=== PATIENT | male | born 1945 | race Caucasian/White ===

== ENCOUNTER 2021-05-09 07:05 | Outpatient (REF) | payer MEDICARE, SELFPAY ==
[2021-05-09 07:21] LABS: MANUAL DIFF FLAG NO
[2021-05-09 07:40] LABS: Basophils Percent Auto 0.3 % (0-2); Eosinophils Absolute Auto 0.3 X10*3/uL (0.0-0.4); Eosinophils Percent Auto 4.5 % (0-4); Hematocrit 40.6 % (42-52); Hemoglobin 13.5 g/dl (14.0-18.0); Imm Gran Abs Auto 0.02 X10*3/uL (0.00-0.03); Imm Gran Pct Auto 0.3 % (0.0-0.4); Lymphocytes Absolute Auto 1.3 X10*3/uL (1.2-4.9); Lymphocytes Percent Auto 20.7 % (20-40); Mean Corpuscular HGB Conc 33.3 g/dl (31.0-36.0); Mean Corpuscular Hemoglobin 30.8 pg (27.0-33.0); Mean Corpuscular Volume 92.5 fL (80-98); Mean Platelet Volume 9.3 fL (9.4-12.4); Monocytes Absolute Auto 0.5 X10*3/uL (0.1-1.2); Monocytes Percent Auto 7.8 % (2-11); Neutrophils Absolute Auto 4.2 X10*3/uL (2.0-8.3); Neutrophils Percent Auto 66.4 % (45-73); Platelet Count 296 X10*3/uL (160-400); Red Blood Count 4.39 X10*6/uL (4.60-5.80); Red Cell Distribution Width 12.5 % (11.0-16.0); White Blood Count 6.3 X10*3/uL (4.8-10.8)
[2021-05-09 08:03] LABS: Alanine Aminotransferase 14 U/L (0-40); Albumin Level 4.3 g/dL (3.5-5.0); Alkaline Phosphatase 109 U/L (39-117); Anion Gap 10 (12-20); Aspartate Amino Transferase 22 U/L (5-37); Bilirubin Total 0.6 mg/dL (0.0-1.0); Blood Urea Nitrogen 21 mg/dL (9-16); C Reactive Protein 0.57 mg/dL (< or = 0.50); Calcium 9.6 mg/dL (8.4-10.2); Carbon Dioxide 30 mmol/L (22-29); Chloride 107 mmol/L (96-108); Cholesterol 184 mg/dL; Estimated Glomerular Filt Rate > 60; Glucose Fasting 93 mg/dL (60-99); HDL Cholesterol 63 mg/dL; LDL Cholesterol Calculated 112 mg/dl; Sodium 142 mmol/L (135-145); Triglycerides 49 mg/dL
[2021-05-09 08:23] LABS: Erythrocyte Sedimentation Rate 21 MM/HR (0-15)
[2021-05-09 08:36] LABS: TSH reflex Free T4 1.93 uIU/mL (0.32-4.0); Vitamin D 25-OH Total 51.6 ng/mL (>30)
[2021-05-09 08:52] LABS: Appearance Urine CLEAR; Color Urine YELLOW; Glucose Urine UA NEG (NEG); Leukocyte Esterase Urine NEG (NEG); Nitrite Urine NEG (NEG); Specific Gravity - Urine 1.015 (1.005-1.025); Urine Blood NEG (NEG); Urine Ketones NEG (NEG); Urine Protein NEG (NEG-TRACE)
== END 2021-05-09 07:06 | disposition home or self-care (01) ==
LOC: HO.LAB 07:05
PROVIDERS: PCP Internal Medicine; Visit Provider Internal Medicine
DX: Z00.00 Encounter for general adult medical examination without abnormal findings (principal); E55.9 Vitamin D deficiency, unspecified; M12.9 Arthropathy, unspecified
CPT/HCPCS: 36415; 80053; 80061; 81003; 82306; 84153; 84443; 85025; 85652; 86140

== ENCOUNTER → 2021-08-29 10:54 | Outpatient (BNVA) | payer MEDICARE, SELFPAY | PROVIDERS: PCP Internal Medicine; Referring Provider Internal Medicine; Visit Provider Nurse Practitioner Family | DX: Z12.11 Encounter for screening for malignant neoplasm of colon (principal); K40.90 Unilateral inguinal hernia, without obstruction or gangrene, not specified as recurrent | CPT/HCPCS: 99202 ==

== ENCOUNTER → 2021-12-15 09:32 | Outpatient (BNVA) | payer MEDICARE, SELFPAY | PROVIDERS: PCP Internal Medicine; Referring Provider Internal Medicine; Visit Provider Surgery | DX: K40.90 Unilateral inguinal hernia, without obstruction or gangrene, not specified as recurrent (principal) | CPT/HCPCS: 99202 ==

== ENCOUNTER 2022-01-04 11:36 | Day surgery (SDC) | payer MEDICARE, SELFPAY ==
--- NOTE | 2022-01-03 13:19 | HO.ANESPROP2 ---
Documented by User: Jyotsna Redmond NP 01/03/22 13:20 HPI - Anesthesia Eval Consult details Narrative: 76yo M for Colonoscopy PMFSH Active Problems Active Problems: All Active Problems (Updated 11/07/21 @ 09:19 by Zechariah Alfaro MD) Right inguinal hernia (Acute) Skin lesions (Acute) Elevated prostate specific antigen [PSA] (Acute) Elevated blood pressure reading (Acute) Colon cancer screening (Acute) Arthritis, multiple joint involvement (Acute) Annual physical exam (Acute) Past Medical History Medical History Arthritis, multiple joint involvement Elevated blood pressure reading Elevated prostate specific antigen [PSA] Family History Family History Mother Cancer Father Heart attack Surgical History Surgical History History of appendectomy Hx of colonoscopy Social History Social History Housing: House Alcohol intake: current Alcohol intake frequency: holidays/special occasions only Patient Tobacco Use Status: Never used Tobacco Second Hand Smoke Exposure: Yes Use of substances other than those prescribed or required for medical reasons: No Are you DNR?: No Advance Directives: No Advance Directives Information Provided: Yes service: No Current occupational status: employed and unemployed Cognitive needs: No Hearing needs: No Vision needs: Yes Meds Allergies Allergy/AdvReac Type Severity Reaction Status Date / Time vaccine adjuvant system, AdvReac Intermediate joint Verified 12/15/21 09:50 AS01B lipo pains; [From Shingrix (PF)] muscle weakness varicella-zoster virus AdvReac Intermediate joint Verified 12/15/21 09:50 glycoprotein pains; [From Shingrix (PF)] muscle weakness Home Medications Medication Instructions Recorded Confirmed Last Taken Type Boswellia 250 mg PO DAILY 05/06/21 12/15/21 Unknown History Gingko Biloba 120 mg PO DAILY 05/06/21 12/15/21 Unknown History Senior Eye Vision See Rx Instructions .Route .COMPLEX 05/06/21 12/15/21 Unknown History antiarthritic combination no.2 900 See Rx Instructions PO BID 05/06/21 12/15/21 Unknown History mg tablet (glucosamine-chondroitin) ascorbic acid (vitamin C) 500 mg 500 mg PO DAILY 05/06/21 12/15/21 Unknown History tablet calcium carbonate 333 mg-magnesium 1 tab PO DAILY 05/06/21 12/15/21 Unknown History oxide 133 mg-zinc sulf 5 mg tablet ferrous sulfate 325 mg (65 mg 325 mg PO .weekly 05/06/21 12/15/21 Unknown History iron) tablet (Feosol) ginseng 500 mg tablet mg PO 05/06/21 12/15/21 Unknown History omega-3 360 yv-fkk-gtp-fish oil 1 cap PO TID 05/06/21 12/15/21 Unknown History 1,200 mg capsule,delayed release (Fish Oil) saw palmetto 450 mg capsule 450 mg PO DAILY 05/06/21 12/15/21 Unknown History turmeric 400 mg capsule 800 mg PO DAILY 05/06/21 12/15/21 Unknown History Exam Exam Date and Time: January 03, 2022 1319 Assessment and Plan Assessment Anesthesia Assessment: Chart Reviewed Documented by User: Jesenia Loomis MD 01/04/22 12:37 [facility] Past Medical History Medical History Arthritis, multiple joint involvement Elevated blood pressure reading Elevated prostate specific antigen [PSA] Family History Family History Mother Cancer Father Heart attack Family history of problems with anesthesia: No Surgical History Surgical History History of appendectomy Hx of colonoscopy History of Problems with Anesthesia: No Social History Social History Housing: House Alcohol intake: current Alcohol intake frequency: holidays/special occasions only Patient Tobacco Use Status: Never used Tobacco Second Hand Smoke Exposure: Yes Use of substances other than those prescribed or required for medical reasons: No Are you DNR?: No Advance Directives: No Advance Directives Information Provided: Yes service: No Current occupational status: employed and unemployed Cognitive needs: No Hearing needs: No Vision needs: Yes Meds Allergies Allergy/AdvReac Type Severity Reaction Status Date / Time vaccine adjuvant system, AdvReac Intermediate joint Verified 12/15/21 09:50 AS01B lipo pains; [From Shingrix (PF)] muscle weakness varicella-zoster virus AdvReac Intermediate joint Verified 12/15/21 09:50 glycoprotein pains; [From Shingrix (PF)] muscle weakness Home Medications Medication Instructions Recorded Confirmed Last Taken Type Boswellia 250 mg PO DAILY 05/06/21 12/15/21 Unknown History Gingko Biloba 120 mg PO DAILY 05/06/21 12/15/21 Unknown History Senior Eye Vision See Rx Instructions .Route .COMPLEX 05/06/21 12/15/21 Unknown History antiarthritic combination no.2 900 See Rx Instructions PO BID 05/06/21 12/15/21 Unknown History mg tablet (glucosamine-chondroitin) ascorbic acid (vitamin C) 500 mg 500 mg PO DAILY 05/06/21 12/15/21 Unknown History tablet calcium carbonate 333 mg-magnesium 1 tab PO DAILY 05/06/21 12/15/21 Unknown History oxide 133 mg-zinc sulf 5 mg tablet ferrous sulfate 325 mg (65 mg 325 mg PO .weekly 05/06/21 12/15/21 Unknown History iron) tablet (Feosol) ginseng 500 mg tablet mg PO 05/06/21 12/15/21 Unknown History omega-3 360 bs-uku-ugd-fish oil 1 cap PO TID 05/06/21 12/15/21 Unknown History 1,200 mg capsule,delayed release (Fish Oil) saw palmetto 450 mg capsule 450 mg PO DAILY 05/06/21 12/15/21 Unknown History turmeric 400 mg capsule 800 mg PO DAILY 05/06/21 12/15/21 Unknown History Exam Airway Mallampati Class: II ([place] lateral) TM Dist: >3cm Neck ROM: Full Heart: rrr Lungs: cta Assessment and Plan Assessment Anesthesia Assessment: Anesthesia Plan Discussed and Chart Reviewed Final Anesthetic Review Family History of Problems with Anesthesia: No History of Problems with Anesthesia: No NPO: Yes ASA Class: III Final Preanesthetic Review: No Changes in Pt Med Stat, Meds/Allgs Chart Reviewed and Consent Obtained/Reviewed Patient Risk: Intermediate Procedure Risk: Intermediate Anesthetic Plan Anesthetic Plan: MAC: Disposition: Standard PACU
--- NOTE | 2022-01-04 11:57 | MHC.SHP ---
Pre-Procedural Eval Section A Date of Service: 01/04/22 Section B Chief Complaint: screening Relevant Family History (Specify if Yes): No Relevant Social History: None Present Medications: see Short Stay Collaborative assessment Medical History: Significant History (Arthritis, multiple joint involvement Elevated blood pressure reading Elevated prostate specific antigen [PSA]) History of Previous Operations: Relevant previous surgery/procedure and date(s) (appendectomy) Allergies: Allergies Allergy/AdvReac Type Severity Reaction Status Date / Time vaccine adjuvant system, AdvReac Intermediate joint Verified 12/15/21 09:50 AS01B lipo pains; [From Shingrix (PF)] muscle weakness varicella-zoster virus AdvReac Intermediate joint Verified 12/15/21 09:50 glycoprotein pains; [From Shingrix (PF)] muscle weakness Review of Systems Sugical H&P ROS: Negative: Constitution, Cardiovascular, Respiratory, Neurological, Psychiatric, Hem-Onc, Allergic/Immunologic, Gastrointestinal, Genitourinary, Musculoskeletal, Integumentary, Endocrine and Eyes/Ears/Nose/Throat Exam Surgical H&P Exam: Normal: HEENT, Normal: Heart, Normal: Lungs, Normal: Extremities, Normal: Skin and Normal: Neurological and Significant Findings: Abdomen (right sided inguinal hernia, reducible) Plan Diagnosis/Plan: Unchanged I have reviewed the history and physical and performed a pertinent physical examination on my patient. No changes have occurred unless specified.
[2022-01-04 12:17] VITALS: BMI 22.9
[2022-01-04 12:31] VITALS: BP 162/73; PULSE 55; RESP 18; TEMP 35.9; O2SAT 96
[2022-01-04] MEDS: Lactated Ringers 1,000 ML 100 ML IVCONT (12:43)
[2022-01-04 13:26] VITALS: BP 92/53; PULSE 50; RESP 16; TEMP 36.2; O2SAT 97
--- NOTE | 2022-01-04 13:26 | PM.OP ---
Brief Operative Note Date of Service: 01/04/22 Pre-op diagnosis: colon screening Post-op diagnosis: same Procedure: see op note Surgeon: Sabrina Li MD Anesthesia: MAC Was an Heat Treat Operator used for this Procedure?: No Estimated blood loss (mL): 0 Condition: stable Disposition: PACU
--- NOTE | 2022-01-04 13:27 | W.PM.OPN ---
Operative Note Operative Note Date of Service: 01/04/22 Narrative: Operative Information Procedure Description: Colonoscopy Indication: screening Anesthesia: MAC COLONOSCOPY Instrument: Olympus variable stiffness Adult scope 190L Colonoscopy Monitoring: Vital signs and clinical assessment, continuous EKG monitoring, Pulse oximetry, Carbon Dioxide monitoring and blood pressure monitoring were done throughout the procedure. Colon withdrawal time was 11 minutes. Procedure: The patient was placed in the left lateral decubitis position and pre-procedure medications were administered. After a digital rectal examination of the ano-rectum, the video colonoscope was inserted into the rectum and advanced through the colon to the cecum/TI. The colonoscope was slowly withdrawn in a retrograde panoramic fashion and the colon mucosa was carefully examined including a retroflexed view of the rectum. Findings and interventions are described below. Procedure Difficulty: moderate due to looping in hernia Findings: Terminal Ileum-normal Cecum:normal Ascending Colon: 10 mm sessile polyp removed with cold snare Transverse Colon -normal Descending Colon: diminutive polyp 3-4 mm removed with cold forceps Sigmoid Colon: moderate diverticulosis noted Rectum: Retroflexion with small internal hemorrhoids, grade I Anorectum - normal Colon preparation: [place] Bowel Preparation Scale Right colon; 2 Transverse colon: 3 Left colon; 3 (0 = Unprepared colon segment with mucosa not seen due to solid stool that cannot be cleared. 1 = Portion of mucosa of the colon segment seen, but other areas of the colon segment not well seen due to staining, residual stool and/or opaque liquid. 2 = Minor amount of residual staining, small fragments of stool and/or opaque liquid, but mucosa of colon segment seen well. 3 = Entire mucosa of colon segment seen well with no residual staining, small fragments of stool or opaque liquid) Impression and Post Procedure Diagnosis: polyps internal hemorrhoids diverticular disease Plan: High fiber diet leaflet Avoid straining at stool, epsom salts and sitz bath, anusol supps or cream Repeat Colonoscopy in 5 years due to polyps if health allows or earlier if clinically indicated Above findings were reviewed with the patient and relevant handouts were provided if indicated.
[2022-01-04 13:41] VITALS: BP 123/65; PULSE 49; RESP 16; O2SAT 97
[2022-01-04 13:56] VITALS: BP 103/82; PULSE 56; RESP 16; TEMP 36.2; O2SAT 97
[2022-01-04 14:11] VITALS: BP 115/80; PULSE 58; RESP 16; TEMP 36.2; O2SAT 97
== END 2022-01-04 15:21 | disposition home or self-care (01) ==
PROVIDERS: PCP Internal Medicine; Visit Provider Internal Medicine Gastroenterology
PROC: 0DJD8ZZ Inspection of Lower Intestinal Tract, Via Natural or Artificial Opening Endoscopic (ICD-10-PCS; CPT 45378; principal; 2022-01-04 14:10)
DX: Z12.11 Encounter for screening for malignant neoplasm of colon (principal); D12.2 Benign neoplasm of ascending colon; K63.5 Polyp of colon; K57.30 Diverticulosis of large intestine without perforation or abscess without bleeding; K64.0 First degree hemorrhoids; K40.90 Unilateral inguinal hernia, without obstruction or gangrene, not specified as recurrent; M15.9 Polyosteoarthritis, unspecified; R03.0 Elevated blood-pressure reading, without diagnosis of hypertension
CPT/HCPCS: 45385; 45380; 88305; J0690

== ENCOUNTER → 2022-01-18 09:49 | Outpatient (BNVA) | payer MEDICARE, SELFPAY | PROVIDERS: PCP Internal Medicine; Visit Provider Nurse Practitioner Family | DX: K63.5 Polyp of colon (principal); K57.90 Diverticulosis of intestine, part unspecified, without perforation or abscess without bleeding; Z98.890 Other specified postprocedural states | CPT/HCPCS: 99212 ==

== ENCOUNTER 2022-01-27 09:55 | Day surgery (SDC) | payer MEDICARE, SELFPAY ==
[2022-01-23 09:08] VITALS: BMI 22.2
--- NOTE | 2022-01-26 09:19 | P.CONAN_ITS ---
Documented by User: Jyotsna Redmond NP 01/26/22 09:26 HPI - Anesthesia Eval Consult details Narrative: 76yo M for Right Hernia Repair Inguinal with mesh s/p colo 01/04/22 with MAC PMFSH Active Problems Active Problems: All Active Problems (Updated 01/18/22 @ 10:10 by Esperanza Marinelli, [facility]) Annual physical exam (Acute) Arthritis, multiple joint involvement (Acute) Colon cancer screening (Acute) Elevated blood pressure reading (Acute) Elevated prostate specific antigen [PSA] (Acute) Skin lesions (Acute) Right inguinal hernia (Acute) Past Medical History Medical History Arthritis, multiple joint involvement Elevated blood pressure reading Elevated prostate specific antigen [PSA] Sessile colonic polyp Family History Family History Mother Cancer Father Heart attack Family history of problems with anesthesia: No Surgical History Surgical History History of appendectomy Hx of colonoscopy History of Problems with Anesthesia: No Social History Social History Housing: House Are you a primary customer care specialist to a significant other at home: No Do you presently have visiting nurse or other home services: No Alcohol intake: current Alcohol intake frequency: a few times a month Patient Tobacco Use Status: Never used Tobacco Second Hand Smoke Exposure: Yes Use of substances other than those prescribed or required for medical reasons: No Have you been hit, kicked, punched, or otherwise hurt by someone within the past year? If so, by whom?: No Are you DNR?: No Advance Directives: No Advance Directives Information Provided: Yes Advance Directives on File: No Recently lost weight without trying: No Eating poorly because of decreased appetite: No Nutrition Risks: No Nutritional Risk service: No Current occupational status: employed and unemployed Cognitive needs: No Hearing needs: No Vision needs: Yes Meds Allergies Allergy/AdvReac Type Severity Reaction Status Date / Time vaccine adjuvant system, AdvReac Intermediate joint Verified 01/27/22 11:13 AS01B lipo pains; [From Shingrix (PF)] muscle weakness varicella-zoster virus AdvReac Intermediate joint Verified 01/23/22 09:02 glycoprotein pains; [From Shingrix (PF)] muscle weakness Home Medications Medication Instructions Recorded Confirmed Last Taken Type Boswellia 250 mg PO DAILY 05/06/21 12/15/21 Unknown History Gingko Biloba 120 mg PO DAILY 05/06/21 12/15/21 Unknown History Senior Eye Vision See Rx Instructions .Route .COMPLEX 05/06/21 01/23/22 Unknown History antiarthritic combination no.2 900 See Rx Instructions PO BID 05/06/21 01/23/22 Unknown History mg tablet (glucosamine-chondroitin) ascorbic acid (vitamin C) 500 mg 500 mg PO DAILY 05/06/21 01/23/22 Unknown History tablet calcium carbonate 333 mg-magnesium 1 tab PO DAILY 05/06/21 01/23/22 Unknown History oxide 133 mg-zinc sulf 5 mg tablet ferrous sulfate 325 mg (65 mg 325 mg PO .weekly 05/06/21 01/23/22 Unknown History iron) tablet (Feosol) ginseng 500 mg tablet 500 mg PO DAILY 05/06/21 01/23/22 Unknown History omega-3 360 mp-fuq-khp-fish oil 1 cap PO TID 05/06/21 01/23/22 Unknown History 1,200 mg capsule,delayed release (Fish Oil) saw palmetto 450 mg capsule 450 mg PO DAILY 05/06/21 01/23/22 Unknown History turmeric 400 mg capsule 800 mg PO DAILY 05/06/21 01/23/22 Unknown History Exam Exam Date and Time: January 26, 2022 0919 Height,Weight and Vital Signs: Height 5 ft 10 in Weight 70.307 kg Assessment and Plan Assessment Anesthesia Assessment: Chart Reviewed Final Anesthetic Review Family History of Problems with Anesthesia: No History of Problems with Anesthesia: No Documented by User: Curtis Cabrera MD 01/27/22 13:17 PMFSH Past Medical History Medical History Arthritis, multiple joint involvement Elevated blood pressure reading Elevated prostate specific antigen [PSA] Sessile colonic polyp Family History Family History Mother Cancer Father Heart attack Family history of problems with anesthesia: No Surgical History Surgical History History of appendectomy Hx of colonoscopy History of Problems with Anesthesia: No Social History Social History Housing: House Are you a primary customer care specialist to a significant other at home: No Do you presently have visiting nurse or other home services: No Alcohol intake: current Alcohol intake frequency: a few times a month Patient Tobacco Use Status: Never used Tobacco Second Hand Smoke Exposure: Yes Use of substances other than those prescribed or required for medical reasons: No Have you been hit, kicked, punched, or otherwise hurt by someone within the past year? If so, by whom?: No Are you DNR?: No Advance Directives: No Advance Directives Information Provided: Yes Advance Directives on File: No Recently lost weight without trying: No Eating poorly because of decreased appetite: No Nutrition Risks: No Nutritional Risk service: No Current occupational status: employed and unemployed Cognitive needs: No Hearing needs: No Vision needs: Yes Meds Allergies Allergy/AdvReac Type Severity Reaction Status Date / Time vaccine adjuvant system, AdvReac Intermediate joint Verified 01/27/22 11:13 AS01B lipo pains; [From Shingrix (PF)] muscle weakness varicella-zoster virus AdvReac Intermediate joint Verified 01/23/22 09:02 glycoprotein pains; [From Shingrix (PF)] muscle weakness Home Medications Medication Instructions Recorded Confirmed Last Taken Type Boswellia 250 mg PO DAILY 05/06/21 12/15/21 Unknown History Gingko Biloba 120 mg PO DAILY 05/06/21 12/15/21 Unknown History Senior Eye Vision See Rx Instructions .Route .COMPLEX 05/06/21 01/23/22 Unknown History antiarthritic combination no.2 900 See Rx Instructions PO BID 05/06/21 01/23/22 Unknown History mg tablet (glucosamine-chondroitin) ascorbic acid (vitamin C) 500 mg 500 mg PO DAILY 05/06/21 01/23/22 Unknown History tablet calcium carbonate 333 mg-magnesium 1 tab PO DAILY 05/06/21 01/23/22 Unknown History oxide 133 mg-zinc sulf 5 mg tablet ferrous sulfate 325 mg (65 mg 325 mg PO .weekly 05/06/21 01/23/22 Unknown History iron) tablet (Feosol) ginseng 500 mg tablet 500 mg PO DAILY 05/06/21 01/23/22 Unknown History omega-3 360 yb-oxv-lkx-fish oil 1 cap PO TID 05/06/21 01/23/22 Unknown History 1,200 mg capsule,delayed release (Fish Oil) saw palmetto 450 mg capsule 450 mg PO DAILY 05/06/21 01/23/22 Unknown History turmeric 400 mg capsule 800 mg PO DAILY 05/06/21 01/23/22 Unknown History Exam Airway Mallampati Class: I TM Dist: >3cm Neck ROM: Full Loose/Missing/Broken Teeth: No Heart: ok Lungs: ok Assessment and Plan Final Anesthetic Review Family History of Problems with Anesthesia: No History of Problems with Anesthesia: No NPO: Yes ASA Class: III Final Preanesthetic Review: No Changes in Pt Med Stat, Meds/Allgs Chart Reviewed, Consent Obtained/Reviewed and Anes Risks/Benef Reviewed Patient Risk: Intermediate Procedure Risk: Low Anesthetic Plan Anesthetic Plan: GA and Agree w/ Assess. and Plan Disposition: Standard PACU
[2022-01-27] VITALS (8 sets, daily range): BP systolic 117–158; BP diastolic 57–83; PULSE 43–57; RESP 10–18; TEMP 36.2–36.6; O2SAT 95–100
[2022-01-27] MEDS: Lactated Ringers 1,000 ML 100 ML IVCONT (10:57)
--- NOTE | 2022-01-27 12:14 | PC.NURSE ---
DR. TORRES UPDATED THAT PT HAS REDDENED/CHAFED AREAS ON BILATERAL GROIN, DUE TO I WEAR A HERNIA JOCK STRAP EVERYDAY FOR YEARS. NO OPEN AREAS. DR. TORRES TO ASSESS.
--- NOTE | 2022-01-27 12:52 | MHC.SHP ---
Pre-Procedural Eval Section A Date of Service: 01/27/22 Section B Chief Complaint: Unilateral inguinal hernia, without obstruction Details of Present Illness: has a reducible inguinal hernia with Olivreos Relevant Family History (Specify if Yes): No Relevant Social History: None Present Medications: see Short Stay Collaborative assessment Medical History: Significant History ( arthritis, hypertension) Allergies: Allergies Allergy/AdvReac Type Severity Reaction Status Date / Time vaccine adjuvant system, AdvReac Intermediate joint Verified 01/27/22 11:13 AS01B lipo pains; [From Shingrix (PF)] muscle weakness varicella-zoster virus AdvReac Intermediate joint Verified 01/23/22 09:02 glycoprotein pains; [From Shingrix (PF)] muscle weakness Review of Systems Sugical H&P ROS: Negative: Constitution, Cardiovascular, Respiratory, Neurological, Psychiatric, Hem-Onc, Allergic/Immunologic, Gastrointestinal, Genitourinary, Musculoskeletal, Integumentary, Endocrine and Eyes/Ears/Nose/Throat Exam Surgical H&P Exam: Normal: HEENT, Normal: Heart, Normal: Lungs, Normal: Extremities, Normal: Skin and Normal: Neurological and Significant Findings: Abdomen ( right inguinal hernia) Plan Diagnosis/Plan: Unchanged I have reviewed the history and physical and performed a pertinent physical examination on my patient. No changes have occurred unless specified.
--- NOTE | 2022-01-27 15:01 | P.OP_ITS ---
Operative Note Operative Note Date of Service: 01/27/22 Narrative: Preop diagnosis: Right inguinal hernia Postop diagnosis: Right inguinal hernia with the large sac, indirect Procedure: Repair of right inguinal hernia with mesh The patient is a 76-year-old male with note of a reducible mass on the right groin consistent with a right inguinal hernia. View of marked increased in size, discomfort he wanted to proceed with repair. He understood the technique of repair with mesh. He was aware of the risks, benefits, and alternatives He was brought to the operating room and placed supine on the table under general anesthesia via laryngeal mask airway. the right groin was prepped and draped in the usual sterile fashion. A surgical time-out was done. The patient received cefazolin 2 g IV preoperatively I infiltrated the planned line of incision with lidocaine 1%. I made a short incision on the skin along an imaginary line from the anterior superior iliac spine to the pubic ramus using blade 15. This was carried down through the full- thickness of the skin subcutaneous fat with electrocautery. I bluntly dissected the external oblique aponeurosis to define this. By doing so were able to visualize the external ring. I incised the external oblique aponeurosis and co nnected this incision with the external ring to enter the inguinal canal. I applied graspers on the edges of the divided aponeurosis. I did blunt dissection of the underside of the aponeurosis to create a pocket for the mesh. The spermatic cord was noted and there appeared to be at an accompany large hernia. I bluntly dissected the cord and its contents with index finger. There was note of a large sac with significant adhesions surrounding the area likely from the chronicity of this hernia. We had a difficult time dissecting around this cord and the hernia. Eventually was able to pass a [place] drain around this and this was used for traction. I examined the cord. There was note of a very large sac. We had to carefully separate this from last of the cord contents. This had to be done very slowly and gently as the structures were not that easy to we identified because of the large sac along with the combining adhesions. Eventually was able to visualize the vas deferens. This was therefore protected during the rest of the dissection With the vas deferens identified proceeded to continue to separate the rest of the large sac from the cord contents. Again this part of this procedure took a long time view of the markedly adherent sac to the rest of the cord structures. Eventually as able to mobilize the sac all the way to the internal ring. This was reduced. I reinforced the ring with a medium-sized plug. The plug was secured with Prolene 2 sutures to the shelving edge of the inguinal and laterally and the internal oblique superiorly medially. I reinforced the floor of the canal with a keyhole mesh. The tails of the mesh were passed around the cord at the level of the internal ring. I used Prolene 2 sutures to secure the mesh to the internal oblique medially and superiorly, the inguinal and laterally and the pubic ramus inferomedially I copiously irrigated. Once hemostasis was ensured, I proceeded to reappose the subcutaneous layer with Dexon 3-0 interrupted sutures. Skin closure was achieved with Dexon 4-0 subcuticular running stitch. Steri-Strips and dressings were applied. The area was infiltrated with Marcaine 0.5% for postop analgesia. The procedure was completed The patient tolerated well. There were no complication noted. Initial and final counts of sponges instruments were correct. Estimated blood loss was about 50 cc The patient was extubated without difficulty and transferred to the recovery room with stable vital signs.
== END 2022-01-27 16:51 | disposition home or self-care (01) ==
PROVIDERS: PCP Internal Medicine; Visit Provider Surgery
PROC: (CPT 49505; principal; 2022-01-27 13:00)
DX: K40.90 Unilateral inguinal hernia, without obstruction or gangrene, not specified as recurrent (principal); K66.0 Peritoneal adhesions (postprocedural) (postinfection); R03.0 Elevated blood-pressure reading, without diagnosis of hypertension; R97.20 Elevated prostate specific antigen [PSA]; M15.9 Polyosteoarthritis, unspecified; Z79.899 Other long term (current) drug therapy
CPT/HCPCS: 49505; C1781; J0131; J0690; J3010

== ENCOUNTER → 2022-02-22 12:56 | Outpatient (BNVA) | payer MEDICARE, SELFPAY | PROVIDERS: PCP Internal Medicine; Visit Provider Urology | DX: R97.20 Elevated prostate specific antigen [PSA] (principal); N40.1 Benign prostatic hyperplasia with lower urinary tract symptoms; N13.8 Other obstructive and reflux uropathy | CPT/HCPCS: 99202 ==

== ENCOUNTER 2022-05-15 08:06 | Outpatient (REF) | payer MEDICARE, SELFPAY ==
[2022-05-15 08:27] LABS: MANUAL DIFF FLAG NO
[2022-05-15 08:54] LABS: Basophils Percent Auto 0.7 % (0-2); Eosinophils Absolute Auto 0.2 X10*3/uL (0.0-0.4); Eosinophils Percent Auto 3.6 % (0-4); Hematocrit 42.6 % (42.0-52.0); Hemoglobin 14.2 g/dl (14.0-18.0); Imm Gran Abs Auto 0.01 X10*3/uL (0.00-0.03); Imm Gran Pct Auto 0.2 % (0.0-0.4); Lymphocytes Absolute Auto 1.2 X10*3/uL (1.2-4.9); Mean Corpuscular HGB Conc 33.3 g/dl (31.0-36.0); Mean Corpuscular Hemoglobin 30.5 pg (27.0-33.0); Mean Corpuscular Volume 91.6 fL (80.0-98.0); Mean Platelet Volume 9.4 fL (9.4-12.4); Monocytes Absolute Auto 0.4 X10*3/uL (0.1-1.2); Monocytes Percent Auto 8.7 % (2-11); Neutrophils Absolute Auto 2.6 x10*3/uL (2.0-8.3); Neutrophils Percent Auto 58.8 % (45-73); Platelet Count 266 X10*3/uL (160-400); Red Blood Count 4.65 X10*6/uL (4.60-5.80); Red Cell Distribution Width 12.4 % (11.0-16.0); White Blood Count 4.4 X10*3/uL (4.8-10.8)
[2022-05-15 08:59] LABS: Appearance Urine Cloudy; Color Urine Yellow; Glucose Urine UA Negative (Negative); Leukocyte Esterase Urine Negative (Negative); Nitrite Urine Negative (Negative); Specific Gravity - Urine 1.015 (1.005-1.025); Urine Blood Negative (Negative); Urine Ketones Negative (Negative); Urine Protein Negative (Neg-Trace)
[2022-05-15 09:18] LABS: Alanine Aminotransferase 24 U/L (0-40); Albumin Level 4.5 g/dL (3.5-5.0); Alkaline Phosphatase 110 U/L (39-117); Anion Gap 15 (12-20); Aspartate Amino Transferase 31 U/L (5-37); Bilirubin Total 0.7 mg/dL (0.0-1.0); Blood Urea Nitrogen 19 mg/dL (9-16); Calcium 9.4 mg/dL (8.4-10.2); Carbon Dioxide 27 mmol/L (22-29); Chloride 104 mmol/L (96-108); Cholesterol 203 mg/dL; Estimated Glomerular Filt Rate > 60; Glucose Fasting 93 mg/dL (60-99); HDL Cholesterol 74 mg/dL; LDL Cholesterol Calculated 121 mg/dl; Potassium 4.9 mmol/L (3.3-5.1); Sodium 141 mmol/L (135-145); Total Protein 7.2 g/dL (6.5-8.0); Triglycerides 43 mg/dL
[2022-05-15 09:38] LABS: TSH reflex Free T4 1.61 uIU/mL (0.32-4.0); Vitamin D 25-OH Total 63.5 ng/mL (>30)
== END 2022-05-15 08:07 | disposition home or self-care (01) ==
LOC: HO.LAB 08:06
PROVIDERS: PCP Internal Medicine; Visit Provider Internal Medicine
DX: Z00.00 Encounter for general adult medical examination without abnormal findings (principal); E55.9 Vitamin D deficiency, unspecified; R30.0 Dysuria; R03.0 Elevated blood-pressure reading, without diagnosis of hypertension; M12.9 Arthropathy, unspecified; E78.00 Pure hypercholesterolemia, unspecified
CPT/HCPCS: 36415; 80053; 80061; 81003; 82306; 84443; 85025

== ENCOUNTER 2022-08-22 08:52 | Outpatient (REF) | payer MEDICARE, SELFPAY ==
[2022-08-22 10:51] LABS: PSA,Total (Free>4and<10) 6.75 ng/mL (0.00-4.00)
[2022-08-23 09:37] LABS: Free Prostate Spec Ag 1.2 ng/mL; Percent Free Prostate Spec Ag 19 % (calc) (>25); Prostate Specific Ag Total 6.3 ng/mL (< OR = 4.0)
== END 2022-08-22 08:53 | disposition home or self-care (01) ==
LOC: HO.LAB 08:52
PROVIDERS: PCP Internal Medicine; Visit Provider Urology
DX: Z12.5 Encounter for screening for malignant neoplasm of prostate (principal); N40.1 Benign prostatic hyperplasia with lower urinary tract symptoms; R97.20 Elevated prostate specific antigen [PSA]; N13.8 Other obstructive and reflux uropathy
CPT/HCPCS: 36415; 84153; 84154

== ENCOUNTER → 2022-08-29 08:52 | Outpatient (BNVA) | payer MEDICARE, SELFPAY | PROVIDERS: PCP Internal Medicine; Visit Provider Urology | DX: R97.20 Elevated prostate specific antigen [PSA] (principal) | CPT/HCPCS: 99212 ==

== ENCOUNTER 2023-02-08 07:02 | Outpatient (REF) | payer MEDICARE, SELFPAY ==
[2023-02-08 08:48] LABS: PSA,Total (Free>4and<10) 3.47 ng/mL (0.00-4.00)
== END 2023-02-08 07:03 | disposition home or self-care (01) ==
LOC: HO.LAB 07:02
PROVIDERS: PCP Internal Medicine; Visit Provider Urology
DX: Z12.5 Encounter for screening for malignant neoplasm of prostate (principal); R97.20 Elevated prostate specific antigen [PSA]
CPT/HCPCS: 36415; 84153

== ENCOUNTER 2023-02-23 09:06 | Outpatient (AMB) | payer MEDICARE, SELFPAY ==
--- NOTE | 2023-02-23 09:07 | MHC.OFFVIS ---
Intake Intake Visit Reasons: 6M PSA(set) Intake Note: Pt presents to the office today for a 6 month PSA Allergies vaccine adjuvant system, AS01B lipo [From Shingrix (PF)] Adverse Reaction (Intermediate, Verified 02/23/23 09:07) joint pains; muscle weakness varicella-zoster virus glycoprotein [From Shingrix (PF)] Adverse Reaction (Intermediate, Verified 02/23/23 09:07) joint pains; muscle weakness Medication List - Last Reconciled 02/23/23 by Orestes Jensen MD antiarthritic combination no.2 (glucosamine-chondroitin) 1 tablet PO 2 times a day; ascorbic acid (vitamin C) 500 mg PO DAILY [Boswellia 250 mg PO DAILY] calcium carb-mag ox-zinc sulf 333-133-5 mg 1 tab PO DAILY ferrous sulfate (Feosol) 325 mg PO .weekly finasteride 5 mg PO DAILY 90 days [[place] Biloba 120 mg PO DAILY] ginseng 500 mg PO DAILY ibuprofen 600 mg PO Q6H PRN omega 1-fcl-zco-fish oil 360-1,200 mg (Fish Oil) 1 cap PO TID saw palmetto 450 mg PO DAILY [Senior Eye Vision 1 tablet daily; ] sildenafil 50 mg PO DAILY PRN 30 days turmeric 800 mg PO DAILY HPI HPI Comments History of Present Illness Details Tesfaye is a pleasant male. He is seen for the following urologic conditions - elevated PSA - erectile dysfunction A great response to finasteride Continue Repeat PSA in 6 months Elevated PSA Marginal PSA for age PSA 05/19 4.9, 08/21 6.3 19%, 02/18 3.5 +F Minimal lower urinary tract symptoms KARELY 2+ on exam No nodules Reassurance provided 6 month follow-up repeat levels Erectile dysfunction Responsive to sildenafil PFSH Medical History Arthritis, multiple joint involvement Elevated blood pressure reading Elevated prostate specific antigen [PSA] Sessile colonic polyp Surgical History History of appendectomy History of right inguinal hernia repair (~01/27/22) Hx of colonoscopy Family History Mother Cancer Father Heart attack Social History Housing: House Are you a primary morning caregiver to a significant other at home: No Do you presently have visiting nurse or other home services: No Alcohol intake: current Alcohol intake frequency: a few times a month Patient Tobacco Use Status: Never used Tobacco e-Cigarette/Vaping Use: Never Used Second Hand Smoke Exposure: Yes service: No Current occupational status: employed and unemployed Cognitive needs: No Hearing needs: No Vision needs: Yes Review of Systems Const Denies chills and Denies fever(s) Card Reports no additional complaints and Denies syncope Resp Denies cough GI Denies abdominal pain and Denies heartburn Reports as per HPI and Denies change in libido Neuro Denies syncope Psych Denies change in libido Endo Denies change in libido Physical Exam Const General: cooperative, healthy appearing, comfortable and no acute distress Orientation/consciousness: patient oriented x3 HEENT Face and sinus: Yes normal facial exam Mouth: moist mucous membranes Neck Neck: Yes normal visual inspection, Yes full ROM and Yes trachea midline Chest Chest palpation & inspection: normal inspection of the chest Resp Effort & Inspection: normal respiratory effort, able to speak in complete sentences and no respiratory distress GI Inspection: Yes normal to inspection Back/Spine/Pelvis Cervical Spine: normal cervical lordosis Thoracic/Lumbar Spine: thoracic and lumbar spine normal to inspection Skin General skin exam: no rashes or lesions noted Neuro General: patient oriented x3, gait normal, tone normal and moves all extremities Extrem General: Yes normal to inspection and Yes capillary refill normal Assessment & Plan Assessment & Plan (1) Bladder outlet obstruction: Code(s): N32.0 - Bladder-neck obstruction (2) Erectile dysfunction: Code(s): N52.9 - Male erectile dysfunction, unspecified Qualifiers: Erectile dysfunction type: unspecified Qualified Code(s): N52.9 - Male erectile dysfunction, unspecified Plan Six month follow-up labs Patient Instructions: Imaging studies, laboratory and physical exam results were discussed and reviewed in detail. No major barriers to patient understanding were identified. An opportunity to ask questions regarding the treatment plan was provided. All questions were answered. The patient expressed understanding and agreement with the above treatment plan. The patient is aware they should contact our office by phone for worsening of their current condition or the appearance of new urologic symptoms. Compliance is encouraged with any medications and followup testing that is ordered. It is a privilege to participate in the urologic care of your patient. If you have any questions or concerns regarding treatment for the above conditions, or other urologic issues, please do not hesitate to contact me. The office telephone contact is [phone]. This note is constructed using voice recognition software. While every effort has been made to ensure accuracy debt collection specialist errors may have been included. Yours sincerely, Dr Orestes Jensen MD, [facility] - Urology Providers of Expert, Compassionate Care for the Genitourinary System Coding Level of Care Code Est Pt Level 3 (34172) Diagnoses Bladder outlet obstruction N32.0 Erectile dysfunction N52.9 Erectile dysfunction type: unspecified
== END 2023-02-23 09:31 | disposition home or self-care (01) ==
PROVIDERS: Visit Provider Urology
DX: N32.0 Bladder-neck obstruction (principal); N52.9 Male erectile dysfunction, unspecified
CPT/HCPCS: 99213

== ENCOUNTER → 2023-02-23 09:06 | Outpatient (BNVA) | payer MEDICARE, SELFPAY | PROVIDERS: Visit Provider Urology | DX: N32.0 Bladder-neck obstruction (principal); N52.9 Male erectile dysfunction, unspecified | CPT/HCPCS: 99212 ==

== ENCOUNTER 2023-05-22 08:42 | Outpatient (AMB) | payer MEDICARE, SELFPAY ==
[2023-05-22 08:43] VITALS: BP 140/86; PULSE 61; O2SAT 98; BMI 23.3
--- NOTE | 2023-05-22 08:43 | MHC.PC.OV ---
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 Required: No Accompanied by: Self / Same As Patient Allergies vaccine adjuvant system, AS01B lipo [From Shingrix (PF)] Adverse Reaction (Intermediate, Verified 05/22/23 09:18) joint pains; muscle weakness varicella-zoster virus glycoprotein [From Shingrix (PF)] Adverse Reaction (Intermediate, Verified 05/22/23 09:18) joint pains; muscle weakness Medication List - Last Reconciled 05/22/23 by Zechariah Alfaro MD antiarthritic combination no.2 (glucosamine-chondroitin) 1 tablet PO 2 times a day; ascorbic acid (vitamin C) 500 mg PO DAILY [Boswellia 250 mg PO DAILY] calcium carb-mag ox-zinc sulf 333-133-5 mg 1 tab PO DAILY ferrous sulfate (Feosol) 325 mg PO .weekly finasteride 5 mg PO DAILY 90 days [Gingko Biloba 120 mg PO DAILY] ginseng 500 mg PO DAILY ibuprofen 600 mg PO Q6H PRN omega 2-yjw-dfu-fish oil 360-1,200 mg (Fish Oil) 1 cap PO TID saw palmetto 450 mg PO DAILY [Senior Eye Vision 1 tablet daily; ] sildenafil 50 mg PO DAILY PRN 30 days turmeric 800 mg PO DAILY Tobacco use date assessed: 05/22/23 Fall risk assessment: No Falls in past year Last assessed Fall Risk: 05/22/23 Dental Screening Dental Screen Date: 05/22/23 Did you have a dental visit in the last 12 months?: Yes Did you have a dental problem in the last 6 months where you did not have access to dental care?: No Was dental information given to patient?: Patient has dentist [facility] TEN[facility] HPI Details Patient comes in today for his annual physical examination States that he feels okay and notes that his joint pains remain adequately controlled on his current regimen of OTC supplements and regular physical activity and exercise States that all of his residual symptoms from when he contracted COVID back in September 2022 have cleared up gradually over time and he now feels back to his normal/baseline self He denies any headaches or dizziness Denies any chest pains, no SOB No nausea/vomiting, no abdominal pain No change in bowel habits noted He denies any acute urinary symptoms He is up-to-date with his colon cancer screening - had his last one done last year (2021) with Dr. Li; was recommended to get a repeat colonoscopy in 5 years if his health will allow PFSH Medical History Sessile colonic polyp Elevated prostate specific antigen [PSA] Elevated blood pressure reading Arthritis, multiple joint involvement Surgical History History of right inguinal hernia repair (~01/27/22) Hx of colonoscopy History of appendectomy Family History Mother Cancer Father Heart attack Social History Housing: House Are you a primary district manager primary care sales to a significant other at home: No Do you presently have visiting nurse or other home services: No Alcohol intake: current Alcohol intake frequency: a few times a month Patient Tobacco Use Status: Never used Tobacco e-Cigarette/Vaping Use: Never Used Second Hand Smoke Exposure: Yes service: No Current occupational status: employed and unemployed Cognitive needs: No Hearing needs: No Vision needs: Yes Questionnaire PHQ-9 Over the last 2 weeks, how often have you been bothered by any of the following problems? 1. Little interest or pleasure in doing things: not at all 2. Feeling down, depressed, or hopeless: not at all 3. Trouble falling or staying asleep, or sleeping too much: not at all 4. Feeling tired or having little energy: not at all 5. Poor appetite or overeating: not at all 6. Feeling bad about yourself - or that you are a failure or have let yourself or your family down: not at all 7. Trouble concentrating on things, such as reading the newspaper or watching television: not at all 8. Moving or speaking so slowly that other people could have noticed. Or the opposite - being so fidgety or restless that you have been moving around a lot more than usual: not at all 9. Thoughts that you would be better off or of hurting yourself in some way: not at all Total score: 0 Depression Screening Interpretation: Negative Depression Screening Done: Yes 30391 - PHQ-9 Billing: Yes Source: Developed by Drs. Sanjay Tanner, Opal Mi, Joseph Rankin and colleagues, with an educational dea from [employer]. Thrive Questionnaire Date Thrive assessed: 05/22/23 I am a: Patient What is your living situation today?: I have a steady place to live Within the past 12 months, did the food you bought not last and you didn't have the money to get more?: Never true Within the past 12 months, did you worry whether your food would run out before you got money to buy more?: Never true Do you have trouble paying for medicines?: No Do you have trouble getting transportation to medical appointments?: No Do you have trouble paying your heating and electricity bill?: No Do you have trouble taking care of your child, family member or friend?: No Do you have trouble with day-to-day activities such as bathing, preparing meals, shopping, managing finances, etc.?: No Are you currently unemployed and looking for a job?: No Are you interested in more education?: No Please select the resources that you would like help with: None Currently or been in a relationship where the following occur: no concerns reported AUDIT C Alcohol Use Questionnaire (AUDIT-C) 1. How often do you have a drink containing alcohol?: Monthly or less 2. How many drinks containing alcohol do you have on a typical day when you are drinking?: 1 or 2 3. How often do you have six or more drinks on one occasion?: Never Total Score: 1 Score Reviewed/Action Taken: Yes MORTEZA-7 AMB Questionnaire MORTEZA-7 Date MORTEZA - 7 assessed: 05/22/23 Feeling nervous, anxious, or on edge: 0 = Not at all Not being able to stop or control worryin = Not at all Worrying too much about different things: 0 = Not at all Trouble relaxin = Not at all Being so restless that it is hard to sit still: 0 = Not at all Becoming easily annoyed or irritable: 0 = Not at all Feeling afraid as if something awful might happen: 0 = Not at all Total MORTEZA-7 score (0-4 normal; 5-9 mild; 10-14 moderate; 15-21 severe): 0 Source: Developed by Drs. Sanjay Tanner, Opal Mi, Joseph Rankin and colleagues, with an educational dea from [employer]. Review of Systems Const Denies chills, Denies fatigue, Denies fever(s), Denies headache(s), Denies malaise and Denies weakness Eyes Denies blurry vision, Denies change in vision, Denies irritation and Denies itchy eyes ENT Denies dysphagia, Denies dizziness, Denies otalgia, Denies headache(s), Denies nasal congestion, Denies neck pain, Denies odynophagia and Denies sore throat Card Denies chest pain, Denies rapid heart rate, Denies irregular heart rhythm, Denies palpitations and Denies dyspnea Resp Denies chest congestion, Denies cough, Denies dyspnea and Denies wheezing GI Denies abdominal pain, Denies bloating, Denies constipation, Denies dysphagia, Denies heartburn, Denies diarrhea, Denies nausea, Denies odynophagia and Denies vomiting Denies hematuria, Denies difficulty urinating, Denies dysuria, Denies urinary frequency and Denies urinary urgency Musc Denies back pain, Reports arthralgias (on and off but are mostly controlled/manageable), Denies joint swelling, Denies muscle weakness and Denies neck pain Skin/Breast Denies change in pigmentation, Denies lesions, Denies rash and Denies unusual bruising Neuro Denies dizziness, Denies headache(s), Denies paresthesias and Denies weakness Endo Denies fatigue and Denies palpitations Aller/Immun Denies itchy eyes and Denies wheezing Physical exam (Primary Care) Vital Signs: Last Vital Signs Pulse 61 05/22/23 08:43 BP 140/86 H 05/22/23 08:43 Pulse Ox 98 05/22/23 08:43 Oxygen Delivery Method Room Air 05/22/23 08:43 BMI result Body Mass Index 23.3 Tobacco/Smoking Status: Tobacco use Status Tobacco use date assessed 05/22/23 05/22/23 08:54 Patient Tobacco Use Status Never used Tobacco 05/22/23 08:54 e-Cigarette/Vaping Use Never Used 05/22/23 08:54 PHQ-9: PHQ-9 Score PHQ-9: Total score 0 05/22/23 08:54 Depression Screening Interpretation: Negative Thrive Assessment: Date of Thrive Assessment Date Thrive assessed 05/22/23 05/22/23 08:54 Currently or been in a relationship where the following occur: no concerns reported Const General: no acute distress, alert and awake Orientation/consciousness: patient oriented x3 HENMT Head: Yes normocephalic and Yes atraumatic Ears: external ears normal, TM's normal bilaterally and EAC's normal General nose exam: No nasal discharge present Face and sinus: Yes normal facial exam and Yes sinuses nontender Teeth and gingiva: dentition normal Throat: Yes posterior oropharynx normal and Yes tonsils normal (no TP congestion) Eyes Eyelids: Yes eyelids normal Conjunctivae: conjunctivae normal Pupils: Equal, round and reactive pupils present EOM: EOMs intact bilaterally Neck Neck: Yes no lymphadenopathy and Yes supple Thyroid: Thyroid normal Resp Auscultation: clear to auscultation bilaterally, no rales and no wheezes Cardio Rate: regular rate Rhythm: regular rhythm Heart sounds: no murmurs GI Palpation (GI): Soft to palpation, nontender and No hepatosplenomegaly present Auscultation: normal bowel sounds General: Yes no CVA tenderness Back/Spine/Pelvis Back: no CVA tenderness Thoracic/Lumbar Spine: thoracic and lumbar spine normal to inspection Skin Lesions: no lesions Rashes: no rashes Neuro General: patient oriented x3, moves all extremities, no focal motor deficits and CN's II-XI intact bilaterally Cranial nerves: Yes Equal, round and reactive pupils present Cognition (Neuro): normal cognition Gait exam (Neuro): Normal gait present Extrem General: Yes no clubbing, cyanosis or edema Assessment and Plan Assessment & Plan (1) Annual physical exam: Code(s): Z00.00 - Encounter for general adult medical examination without abnormal findings Plan: Check labs (2) Elevated blood pressure reading: Code(s): R03.0 - Elevated blood-pressure reading, without diagnosis of hypertension Plan: Reinforced low sodium diet Patient's BP is slightly elevated again during today's visit; patient states that his BP is usually consistent and slightly lower when he checks it at home He is advised to continue monitoring his blood pressure regularly - systolic BP should ideally be at least 130 to 140 mm or less (3) Elevated prostate specific antigen [PSA]: Code(s): R97.20 - Elevated prostate specific antigen [PSA] Plan: Has been recommended by urology to continue observation Continue Finasteride 5 mg QD Follow up with urology as scheduled (4) Arthritis, multiple joint involvement: Code(s): M12.9 - Arthropathy, unspecified Plan: May continue current OTC supplements (see med list), which he feels are helping with majority of his symptoms He is encouraged to continue staying active and exercising regularly to help manage his joint pains better (5) Erectile dysfunction: Code(s): N52.9 - Male erectile dysfunction, unspecified Qualifiers: Erectile dysfunction type: unspecified Qualified Code(s): N52.9 - Male erectile dysfunction, unspecified Plan: Continue Viagra 50 mg QD PRN Plan Follow up in 6 months Orders: Orders Complete Blood Count Auto Diff Today R03.0 - Elevated blood-pressure reading, without diagnosis of hypertension, Z00.00 - Encounter for general adult medical examination without abnormal findings Lipid Panel Today E78.00 - Pure hypercholesterolemia, unspecified, Z00.00 - Encounter for general adult medical examination without abnormal findings TSH reflex Free T4 Today E78.00 - Pure hypercholesterolemia, unspecified, Z00.00 - Encounter for general adult medical examination without abnormal findings Vitamin D 25-OH Total Today E55.9 - Vitamin D deficiency, unspecified, Z00.00 - Encounter for general adult medical examination without abnormal findings Erythrocyte Sedimentation Rate Today M12.9 - Arthropathy, unspecified, Z00.00 - Encounter for general adult medical examination without abnormal findings Comprehensive [place]. Panel Fast Today M12.9 - Arthropathy, unspecified, R03.0 - Elevated blood-pressure reading, without diagnosis of hypertension, Z00.00 - Encounter for general adult medical examination without abnormal findings UA CC w/rflx Micro + Cult Today R30.0 - Dysuria, Z00.00 - Encounter for general adult medical examination without abnormal findings Coding Level of Care Code Est Pt Prev Care >65y(08108) Diagnoses Annual physical exam Z00.00 Elevated blood pressure reading R03.0 Elevated prostate specific antigen [PSA] R97.20 Arthritis, multiple joint involvement M12.9 Erectile dysfunction, unspecified erectile dysfunction type N52.9 Erectile dysfunction type: unspecified
== END 2023-05-22 09:28 | disposition home or self-care (01) ==
PROVIDERS: Visit Provider Internal Medicine
DX: Z00.00 Encounter for general adult medical examination without abnormal findings (principal); R03.0 Elevated blood-pressure reading, without diagnosis of hypertension; R97.20 Elevated prostate specific antigen [PSA]; M12.9 Arthropathy, unspecified; N52.9 Male erectile dysfunction, unspecified
CPT/HCPCS: 99397

== ENCOUNTER 2023-05-23 07:12 | Outpatient (REF) | payer MEDICARE, SELFPAY ==
[2023-05-23 07:22] LABS: MANUAL DIFF FLAG NO
[2023-05-23 08:08] LABS: Basophils Percent Auto 0.6 % (0-2); Eosinophils Absolute Auto 0.2 X10*3/uL (0.0-0.4); Eosinophils Percent Auto 4.8 % (0-4); Hematocrit 43.2 % (42.0-52.0); Hemoglobin 14.2 g/dl (14.0-18.0); Imm Gran Abs Auto 0.01 X10*3/uL (0.00-0.03); Imm Gran Pct Auto 0.2 % (0.0-0.4); Lymphocytes Absolute Auto 1.3 X10*3/uL (1.2-4.9); Lymphocytes Percent Auto 26.2 % (20-40); Mean Corpuscular HGB Conc 32.9 g/dl (31.0-36.0); Mean Corpuscular Volume 94.3 fL (80.0-98.0); Mean Platelet Volume 9.6 fL (9.4-12.4); Monocytes Absolute Auto 0.4 X10*3/uL (0.1-1.2); Monocytes Percent Auto 8.8 % (2-11); Neutrophils Percent Auto 59.4 % (45-73); Platelet Count 274 X10*3/uL (160-400); Red Blood Count 4.58 X10*6/uL (4.60-5.80); Red Cell Distribution Width 12.5 % (11.0-16.0)
[2023-05-23 08:22] LABS: Appearance Urine Clear; Color Urine Yellow; Glucose Urine UA Negative (Negative); Leukocyte Esterase Urine Negative (Negative); Nitrite Urine Negative (Negative); Urine Blood Negative (Negative); Urine Ketones Negative (Negative); Urine Protein Negative (Neg-Trace)
[2023-05-23 08:43] LABS: Erythrocyte Sedimentation Rate 5 MM/HR (0-15)
[2023-05-23 08:49] LABS: Alanine Aminotransferase 21 U/L (0-40); Albumin Level 4.4 g/dL (3.5-5.0); Alkaline Phosphatase 99 U/L (39-117); Anion Gap 13 (12-20); Aspartate Amino Transferase 26 U/L (5-37); Bilirubin Total 0.5 mg/dL (0.0-1.0); Blood Urea Nitrogen 17 mg/dL (9-16); Carbon Dioxide 28 mmol/L (22-29); Chloride 107 mmol/L (96-108); Cholesterol 229 mg/dL (<200); Estimated Glomerular Filt Rate > 60; Glucose Fasting 93 mg/dL (60-99); HDL Cholesterol 87 mg/dL (>40); LDL Cholesterol Calculated 132 mg/dL (<100); Potassium 4.5 mmol/L (3.3-5.1); Sodium 143 mmol/L (135-145); Total Protein 7.3 g/dL (6.5-8.0); Triglycerides 51 mg/dL (<150)
[2023-05-23 09:05] LABS: TSH reflex Free T4 2.24 uIU/mL (0.32-4.0); Vitamin D 25-OH Total 59.6 ng/mL (>30)
== END 2023-05-23 07:13 | disposition home or self-care (01) ==
LOC: HO.LAB 07:12
PROVIDERS: PCP Internal Medicine; Visit Provider Internal Medicine
DX: Z00.00 Encounter for general adult medical examination without abnormal findings (principal); R03.0 Elevated blood-pressure reading, without diagnosis of hypertension; M12.9 Arthropathy, unspecified; E78.00 Pure hypercholesterolemia, unspecified; R30.0 Dysuria; E55.9 Vitamin D deficiency, unspecified
CPT/HCPCS: 36415; 80053; 80061; 81003; 82306; 84443; 85025; 85652

== ENCOUNTER 2023-08-07 14:05 | Outpatient (AMB) | payer MEDICARE, SELFPAY ==
--- NOTE | 2023-08-07 14:11 | A.OFFPC_ITS ---
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: No Accompanied by: Self / Same As Patient Allergies vaccine adjuvant system, AS01B lipo [From Shingrix (PF)] Adverse Reaction (Intermediate, Verified 08/07/23 15:08) joint pains; muscle weakness varicella-zoster virus glycoprotein [From Shingrix (PF)] Adverse Reaction (Intermediate, Verified 08/07/23 15:08) joint pains; muscle weakness Medication List - Last Reconciled 08/07/23 by Zechariah Alfaro MD antiarthritic combination no.2 (glucosamine-chondroitin) 1 tablet PO 2 times a day; ascorbic acid (vitamin C) 500 mg PO DAILY [Boswellia 250 mg PO DAILY] calcium carb-mag ox-zinc sulf 333-133-5 mg 1 tab PO DAILY ferrous sulfate (Feosol) 325 mg PO .weekly finasteride 5 mg PO DAILY 90 days [Gingko Biloba 120 mg PO DAILY] ginseng 500 mg PO DAILY ibuprofen 600 mg PO Q6H PRN omega 7-fge-qtg-fish oil 360-1,200 mg (Fish Oil) 1 cap PO TID saw palmetto 450 mg PO DAILY [[employer] 1 tablet daily; ] sildenafil 50 mg PO DAILY PRN 30 days turmeric 800 mg PO DAILY Tobacco use date assessed: 08/07/23 Fall risk assessment: No Falls in past year Last assessed Fall Risk: 08/07/23 Dental Screening Dental Screen Date: 08/07/23 Did you have a dental visit in the last 12 months?: Yes Did you have a dental problem in the last 6 months where you did not have access to dental care?: No Was dental information given to patient?: Patient has dentist HPI Cataract HPI Details Patient comes in today at the request of Dr. Leon Baig of the [facility] for a preoperative medical examination for clearance for surgery He is scheduled for cataract extraction/phacoemulsification with IOL of the right eye under MAC on 08/23/2023, followed by the same procedure on the left eye a week later on 08/30/[address] Baig Patient states that he feels well He denies any headaches or dizziness Denies any chest pains, no shortness of breath No nausea/vomiting, no abdominal pain No change in bowel habits noted [facility] Medical History Sessile colonic polyp Elevated prostate specific antigen [PSA] Elevated blood pressure reading Arthritis, multiple joint involvement Surgical History History of right inguinal hernia repair (~01/27/22) Hx of colonoscopy History of appendectomy Family History Mother Cancer Father Heart attack Social History Housing: House Are you a primary professional healthcare representative to a significant other at home: No Do you presently have visiting nurse or other home services: No Alcohol intake: current Alcohol intake frequency: a few times a month Patient Tobacco Use Status: Never used Tobacco e-Cigarette/Vaping Use: Never Used Second Hand Smoke Exposure: Yes service: No Current occupational status: employed and unemployed Cognitive needs: No Hearing needs: No Vision needs: Yes Questionnaire PHQ-9 Over the last 2 weeks, how often have you been bothered by any of the following problems? 1. Little interest or pleasure in doing things: not at all 2. Feeling down, depressed, or hopeless: not at all 3. Trouble falling or staying asleep, or sleeping too much: not at all 4. Feeling tired or having little energy: not at all 5. Poor appetite or overeating: not at all 6. Feeling bad about yourself - or that you are a failure or have let yourself or your family down: not at all 7. Trouble concentrating on things, such as reading the newspaper or watching television: not at all 8. Moving or speaking so slowly that other people could have noticed. Or the opposite - being so fidgety or restless that you have been moving around a lot more than usual: not at all 9. Thoughts that you would be better off or of hurting yourself in some way: not at all Total score: 0 Depression Screening Interpretation: Negative Depression Screening Done: Yes 87058 - PHQ-9 Billing: Yes Source: Developed by Drs. Sanjay Tanner, Opal Mi, Joseph Rankin and colleagues, with an educational dea from [employer]. Thrive Questionnaire Date Thrive assessed: 08/07/23 I am a: Patient What is your living situation today?: I have a steady place to live Within the past 12 months, did the food you bought not last and you didn't have the money to get more?: Never true Within the past 12 months, did you worry whether your food would run out before you got money to buy more?: Never true Do you have trouble paying for medicines?: No Do you have trouble getting transportation to medical appointments?: No Do you have trouble paying your heating and electricity bill?: No Do you have trouble taking care of your child, family member or friend?: No Do you have trouble with day-to-day activities such as bathing, preparing meals, shopping, managing finances, etc.?: No Are you currently unemployed and looking for a job?: No Are you interested in more education?: No Please select the resources that you would like help with: None Currently or been in a relationship where the following occur: no concerns reported AUDIT C Alcohol Use Questionnaire (AUDIT-C) 1. How often do you have a drink containing alcohol?: Monthly or less 2. How many drinks containing alcohol do you have on a typical day when you are drinking?: 1 or 2 3. How often do you have six or more drinks on one occasion?: Weekly Total Score: 4 Score Reviewed/Action Taken: Yes MORTEZA-7 AMB Questionnaire MORTEZA-7 Date MORTEZA - 7 assessed: 08/07/23 Feeling nervous, anxious, or on edge: 0 = Not at all Not being able to stop or control worryin = Not at all Worrying too much about different things: 0 = Not at all Trouble relaxin = Not at all Being so restless that it is hard to sit still: 0 = Not at all Becoming easily annoyed or irritable: 0 = Not at all Feeling afraid as if something awful might happen: 0 = Not at all Total MORTEZA-7 score (0-4 normal; 5-9 mild; 10-14 moderate; 15-21 severe): 0 Source: Developed by Drs. Sanjay Tanner, Opal Mi, Joseph Rankin and colleagues, with an educational dea from [employer]. Review of Systems Const Denies chills, Denies fatigue, Denies fever(s) and Denies headache(s) Eyes Reports blurry vision ENT Denies dysphagia, Denies dizziness, Denies otalgia, Denies headache(s), Denies neck pain, Denies odynophagia and Denies sore throat Card Denies chest pain, Denies rapid heart rate, Denies irregular heart rhythm, Denies palpitations and Denies dyspnea Resp Denies cough, Denies dyspnea and Denies wheezing GI Denies abdominal pain, Denies constipation, Denies dysphagia, Denies heartburn, Denies diarrhea, Denies nausea, Denies odynophagia and Denies vomiting Denies hematuria, Denies difficulty urinating, Denies dysuria and Denies urinary frequency Musc Denies back pain, Reports arthralgias (on and off but are mostly controlled/manageable) and Denies neck pain Skin/Breast Denies rash Neuro Denies dizziness, Denies headache(s) and Denies paresthesias Endo Denies fatigue and Denies palpitations Aller/Immun Denies wheezing Physical exam (Primary Care) Vital Signs: Last Vital Signs Pulse 63 08/07/23 14:12 BP 136/88 08/07/23 14:12 Pulse Ox 98 08/07/23 14:12 Oxygen Delivery Method Room Air 08/07/23 14:12 BMI result Body Mass Index 23.9 Tobacco/Smoking Status: Tobacco use Status Tobacco use date assessed 08/07/23 08/07/23 14:13 Patient Tobacco Use Status Never used Tobacco 08/07/23 14:13 e-Cigarette/Vaping Use Never Used 08/07/23 14:13 PHQ-9: PHQ-9 Score PHQ-9: Total score 0 08/07/23 15:05 Depression Screening Interpretation: Negative Thrive Assessment: Date of Thrive Assessment Date Thrive assessed 08/07/23 08/07/23 14:13 Currently or been in a relationship where the following occur: no concerns reported Const General: no acute distress and alert HENMT Ears: TM's normal bilaterally and EAC's normal Throat: Yes posterior oropharynx normal and Yes tonsils normal (no TP congestion) Neck Neck: Yes no lymphadenopathy and Yes supple Thyroid: Thyroid normal Resp Auscultation: clear to auscultation bilaterally, no rales and no wheezes Cardio Rate: regular rate Rhythm: regular rhythm Heart sounds: no murmurs GI Palpation (GI): Soft to palpation and nontender Auscultation: normal bowel sounds General: Yes no CVA tenderness Back/Spine/Pelvis Back: no CVA tenderness Skin Rashes: no rashes Extrem General: Yes no clubbing, cyanosis or edema Assessment and Plan Assessment & Plan (1) Preoperative examination: Code(s): Z01.818 - Encounter for other preprocedural examination Plan: Patient presents with acceptable risks and appears medically optimized to undergo planned low cardiac risk procedures He has no significant cardiac or pulmonary issues and no history of cardiac disease (2) Cataracts, bilateral: Code(s): H26.9 - Unspecified cataract Qualifiers: Age-related cataract type: unspecified Cataract type: age-related Qualified Code(s): H25.9 - Unspecified age-related cataract Plan: He is scheduled for cataract extraction/phacoemulsification with IOL of the right eye under MAC on 08/23/2023, followed by the same procedure on the left eye a week later on 08/30/[address] Baig of the [facility] (3) Elevated blood pressure reading: Code(s): R03.0 - Elevated blood-pressure reading, without diagnosis of hypertension Plan: Reinforced low sodium diet Patient states that his BP is usually consistent and slightly lower when he checks it at home He is advised to continue monitoring his blood pressure regularly - systolic BP should ideally be at least 130 to 140 mm or less (4) Elevated prostate specific antigen [PSA]: Code(s): R97.20 - Elevated prostate specific antigen [PSA] Plan: He has been recommended by urology to continue observation Continue Finasteride 5 mg QD Follow up with urology as scheduled (5) Arthritis, multiple joint involvement: Code(s): M12.9 - Arthropathy, unspecified Plan: May continue current OTC supplements (see med list), which he feels are helping with majority of his symptoms He is encouraged to continue staying active and exercising regularly to help manage his joint pains better He takes Ibuprofen 600 mg PRN and he has been advised stop taking all NSAIDs at least 7 days before his scheduled procedures Plan Patient is presently medically optimized and has no contraindications to undergo cataract surgery as planned on 08/23/2023 and 08/30/2023 respectively Follow up as scheduled in October 2023 Coding Level of Care Code Est Pt Level 3 (55307) Diagnoses Preoperative examination Z01.818 Age-related cataract of both eyes, unspecified age-related cataract type H25.9 Age-related cataract type: unspecified Cataract type: age-related Elevated blood pressure reading R03.0 Elevated prostate specific antigen [PSA] R97.20 Arthritis, multiple joint involvement M12.9
[2023-08-07 14:12] VITALS: BP 136/88; PULSE 63; O2SAT 98; BMI 23.9
== END 2023-08-07 15:12 | disposition home or self-care (01) ==
PROVIDERS: PCP Internal Medicine; Visit Provider Internal Medicine
DX: Z01.818 Encounter for other preprocedural examination (principal); H25.9 Unspecified age-related cataract; R03.0 Elevated blood-pressure reading, without diagnosis of hypertension; R97.20 Elevated prostate specific antigen [PSA]; M12.9 Arthropathy, unspecified
CPT/HCPCS: 99213

== ENCOUNTER 2023-08-16 07:24 | Outpatient (REF) | payer MEDICARE, SELFPAY ==
[2023-08-16 08:33] LABS: Prostate Specific Antigen 4.31 ng/mL (<0.05-4.0)
== END 2023-08-16 07:25 | disposition home or self-care (01) ==
LOC: HO.LAB 07:24
PROVIDERS: PCP Internal Medicine; Visit Provider Urology
DX: Z12.5 Encounter for screening for malignant neoplasm of prostate (principal); R97.20 Elevated prostate specific antigen [PSA]
CPT/HCPCS: 36415; 84153

== ENCOUNTER 2023-10-03 08:21 | Outpatient (AMB) | payer MEDICARE, SELFPAY ==
--- NOTE | 2023-10-03 08:22 | A.OFFVIS_ITS ---
Intake Intake Visit Reasons: 6M PSA(set)Confirmed Intake Note: Patient presents today for a telehealth follow-up Meds- Finasteride, Sildenafil Allergies to Antibiotic- No Known Allergies Patient stated he is not taking any of his medications at this moment. 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 He is seen for the following urologic conditions - elevated PSA - erectile dysfunction Telemedicine Evaluation 15 min Consultation Zin.gl Jeanine Video attempted PSA 4.3 Had stopped medication Restart finasteride Six-month follow-up lab work Elevated PSA Marginal PSA for age PSA 05/19 4.9, 08/21 6.3 19%, 02/18 3.5 +F, 08/22 4.3 Minimal lower urinary tract symptoms KARELY 2+ on exam No nodules Reassurance provided 6 month follow-up repeat levels Erectile dysfunction Responsive to sildenafil PFS Medical History Sessile colonic polyp Elevated prostate specific antigen [PSA] Elevated blood pressure reading Arthritis, multiple joint involvement Surgical History History of right inguinal hernia repair (~01/27/22) Hx of colonoscopy History of appendectomy Family History Mother Cancer Father Heart attack Social History Housing: House Are you a primary healthcare economics consultant to a significant other at home: No Do you presently have visiting nurse or other home services: No Alcohol intake: current Alcohol intake frequency: a few times a month Patient Tobacco Use Status: Never used Tobacco e-Cigarette/Vaping Use: Never Used Second Hand Smoke Exposure: Yes service: No Current occupational status: employed and unemployed Cognitive needs: No Hearing needs: No Vision needs: Yes Review of Systems Const All systems reviewed & are unremarkable except as noted in HPI and below Reports no additional complaints Resp Reports no additional complaints GI Reports no additional complaints Reports as per HPI Musc Reports no additional complaints Physical Exam Telemedicine evaluation Appropriate responses Regular breathing rate and rhythm HEENT Head: Yes normal to inspection Ears: hearing grossly normal bilaterally Eyes General: appearance normal, both eyes and all related structures Neck Neck: Yes normal visual inspection Chest Chest palpation & inspection: normal inspection of the chest Resp Effort & Inspection: normal respiratory effort and able to speak in complete sentences Assessment & Plan Assessment & Plan (1) Elevated prostate specific antigen [PSA]: Code(s): R97.20 - Elevated prostate specific antigen [PSA] (2) Bladder outlet obstruction: Code(s): N32.0 - Bladder-neck obstruction Plan Finasteride Six-month follow-up lab work Orders: Orders PSA,Total (Free>4and<10) 6 Months R97.20 - Elevated prostate specific antigen [PSA] Medications: Refilled finasteride 5 mg PO DAILY 90 days 90 tabs 1RF R97.20 - Elevated prostate specific antigen [PSA] Patient Instructions: Imaging studies, laboratory and physical exam results were discussed and reviewed in detail. No major barriers to patient understanding were identified. An opportunity to ask questions regarding the treatment plan was provided. All questions were answered. The patient expressed understanding and agreement with the above treatment plan. The patient is aware they should contact our office by phone for worsening of their current condition or the appearance of new urologic symptoms. Compliance is encouraged with any medications and followup testing that is ordered. It is a privilege to participate in the urologic care of your patient. If you have any questions or concerns regarding treatment for the above conditions, or other urologic issues, please do not hesitate to contact me. The office telephone contact is [phone]. This note is constructed using voice recognition software. While every effort has been made to ensure accuracy seat joiner chainstitch errors may have been included. Yours sincerely, Dr Orestes Jensen MD, BRET [facility] - Urology Providers of Expert, Compassionate Care for the Genitourinary System Telehealth Telehealth Location of provider rendering services: practice address Location of patient: address on file Patient Identification confirmed using: Name, : Yes Telehealth method: video Patient verbally consented to treatment: Yes Patient verbally consented to billing insurance company: Yes Patient informed of any privacy concerns related to visit: Yes Coding Level of Care Code Tele Est Pt Level 3 (43745) Diagnoses Elevated prostate specific antigen [PSA] R97.20 Bladder outlet obstruction N32.0
== END 2023-10-03 10:21 | disposition home or self-care (01) ==
LOC: HO.HUSH 08:21
PROVIDERS: PCP Internal Medicine; Visit Provider Urology
DX: R97.20 Elevated prostate specific antigen [PSA] (principal); N32.0 Bladder-neck obstruction
CPT/HCPCS: 99213

== ENCOUNTER → 2023-10-03 08:21 | Outpatient (BNVA) | payer MEDICARE, SELFPAY | PROVIDERS: PCP Internal Medicine; Visit Provider Urology ==

== ENCOUNTER 2023-11-20 09:22 | Outpatient (AMB) | payer MEDICARE, SELFPAY ==
[2023-11-20 09:24] VITALS: BP 162/90; PULSE 65; O2SAT 99; BMI 24.1
--- NOTE | 2023-11-20 09:24 | A.OFFPC_ITS ---
Vital Signs 11/20/23 09:24 11/20/23 10:15 Height 5 ft 10 in Weight 168 lb BMI 24.1 BP 162/90 H 140/86 H Blood Pressure Location Lt brachial Lt brachial Position Sitting Sitting Pulse 65 Pulse Source Pulse Oximeter Pulse Oximetry (%) 99 Oxygen Delivery Method Room Air Intake Visit Reasons: elevated BP, osteoarthritis Ship Boat Or Barge Mate Required: No Shoelace Tipping Machine Operator: Not Required per policy Accompanied by: Self / Same As Patient Allergies vaccine adjuvant system, AS01B lipo [From Shingrix (PF)] Adverse Reaction (Intermediate, Verified 11/20/23 11:59) joint pains; muscle weakness varicella-zoster virus glycoprotein [From Shingrix (PF)] Adverse Reaction (Intermediate, Verified 11/20/23 11:59) joint pains; muscle weakness Medication List - Last Reconciled 11/20/23 by Zechariah Alfaro MD antiarthritic combination no.2 (glucosamine-chondroitin) 1 tablet PO 2 times a day; ascorbic acid (vitamin C) 500 mg PO DAILY [Boswellia 250 mg PO DAILY] calcium carb-mag ox-zinc sulf 333-133-5 mg 1 tab PO DAILY ferrous sulfate (Feosol) 325 mg PO .weekly finasteride 5 mg PO DAILY 90 days [[place] Biloba 120 mg PO DAILY] ginseng 500 mg PO DAILY ibuprofen 600 mg PO Q6H PRN omega 3-rty-dpe-fish oil 360-1,200 mg (Fish Oil) 1 cap PO TID saw palmetto 450 mg PO DAILY [Senior Eye Vision 1 tablet daily; ] sildenafil 50 mg PO DAILY PRN 30 days turmeric 800 mg PO DAILY Tobacco use date assessed: 08/07/23 Fall risk assessment: No Falls in past year Last assessed Fall Risk: 11/20/23 Dental Screening Dental Screen Date: 08/07/23 HPI elevated BP, osteoarthritis HPI Details Patient comes in today for his follow up visit States that he currently feels okay Adds that his cataract surgery done a couple of months ago went well without any issues He denies any headaches or dizziness Denies any chest pains, no SOB No nausea/vomiting, no abdominal pain No change in bowel habits noted States that his joint pains remain adequately controlled on his current regimen of OTC supplements and regular physical activity and exercise Adds that he has also been taking some CBD regularly for a while now and feels that this has helped him recover from all of the lingering effects of COVID, which he contracted in September of 2022 His labs done back in April 2023 after his last physical exam came back mostly normal except for a slight increase in his cholesterol level [facility] Medical History (Updated 11/20/23 @ 12:12 by Zechariah Alfaro MD) Pure hypercholesterolemia Sessile colonic polyp Elevated prostate specific antigen [PSA] Elevated blood pressure reading Arthritis, multiple joint involvement Surgical History (Updated 11/20/23 @ 12:07 by Zechariah Alfaro MD) Hx of bilateral cataract extraction History of right inguinal hernia repair (~01/27/22) Hx of colonoscopy History of appendectomy Family History Mother Cancer Father Heart attack Social History Housing: House Are you a primary medicare contact specialist to a significant other at home: No Do you presently have visiting nurse or other home services: No Alcohol intake: current Alcohol intake frequency: a few times a month Patient Tobacco Use Status: Never used Tobacco e-Cigarette/Vaping Use: Never Used Second Hand Smoke Exposure: Yes service: No Current occupational status: employed and unemployed Cognitive needs: No Hearing needs: No Vision needs: Yes Questionnaire Thrive Questionnaire Date Thrive assessed: 08/07/23 MORTEZA-7 AMB Questionnaire MORTEZA-7 Date MORTEZA - 7 assessed: 08/07/23 Source: Developed by Drs. Sanjay Tanner, Opal Mi, Joseph Rankin and colleagues, with an educational dea from [employer]. Review of Systems Const Denies chills, Denies fatigue, Denies fever(s) and Denies headache(s) ENT Denies dysphagia, Denies dizziness, Denies otalgia, Denies headache(s), Denies neck pain, Denies odynophagia and Denies sore throat Card Denies chest pain, Denies rapid heart rate, Denies irregular heart rhythm, Denies palpitations and Denies dyspnea Resp Denies cough, Denies dyspnea and Denies wheezing GI Denies abdominal pain, Denies constipation, Denies dysphagia, Denies heartburn, Denies diarrhea, Denies nausea, Denies odynophagia and Denies vomiting Denies hematuria, Denies difficulty urinating, Denies dysuria and Denies urinary frequency Musc Denies back pain, Reports arthralgias (on and off but are mostly controlled/manageable) and Denies neck pain Skin/Breast Denies rash Neuro Denies dizziness, Denies headache(s) and Denies paresthesias Endo Denies fatigue and Denies palpitations Aller/Immun Denies wheezing Physical exam (Primary Care) Vital Signs: Last Vital Signs Pulse 65 11/20/23 09:24 BP 140/86 H 11/20/23 10:15 Pulse Ox 99 11/20/23 09:24 Oxygen Delivery Method Room Air 11/20/23 09:24 BMI result Body Mass Index 24.1 Tobacco/Smoking Status: Tobacco use Status Tobacco use date assessed 08/07/23 11/20/23 09:25 Patient Tobacco Use Status Never used Tobacco 11/20/23 09:25 e-Cigarette/Vaping Use Never Used 11/20/23 09:25 Thrive Assessment: Date of Thrive Assessment Date Thrive assessed 08/07/23 11/20/23 09:25 Const General: no acute distress and alert HENMT Ears: TM's normal bilaterally and EAC's normal Throat: Yes posterior oropharynx normal and Yes tonsils normal (no TP congestion) Neck Neck: Yes no lymphadenopathy and Yes supple Thyroid: Thyroid normal Resp Auscultation: clear to auscultation bilaterally, no rales and no wheezes Cardio Rate: regular rate Rhythm: regular rhythm Heart sounds: no murmurs GI Palpation (GI): Soft to palpation and nontender Auscultation: normal bowel sounds General: Yes no CVA tenderness Back/Spine/Pelvis Back: no CVA tenderness Skin Rashes: no rashes Extrem General: Yes no clubbing, cyanosis or edema Results Reviewed Results Reviewed: Laboratory Tests 05/23/23 05/23/23 07:20 Unknown WBC 5.0 Hgb 14.2 Hct 43.2 Plt Count 274 Sodium 143 Potassium 4.5 Creatinine 0.84 Estimated GFR > 60 Fasting Glucose 93 Calcium 10.0 D AST 26 ALT 21 Triglycerides 51 Cholesterol 229 H LDL Cholesterol, Calc 132 H HDL Cholesterol 87 25-OH Vitamin D Total 59.6 TSH 2.24 Ur Specific [place] 1.010 Urine Protein Negative Urine Glucose (UA) Negative Urine Blood Negative Urine Nitrite Negative Ur Leukocyte Esterase Negative Assessment and Plan Assessment & Plan (1) Elevated blood pressure reading: Code(s): R03.0 - Elevated blood-pressure reading, without diagnosis of hypertension Plan: Reinforced low sodium diet His initial blood pressure today was high at 162/90 mm but it went down to 140/86 mm when rechecked a few minutes later Patient states that his BP is usually consistent and mostly lower when he checks it at home He is advised to continue monitoring his blood pressure regularly - systolic BP should ideally be at least 130 to 140 mm or less (2) Pure hypercholesterolemia: Code(s): E78.00 - Pure hypercholesterolemia, unspecified Plan: Advised that his LDL cholesterol level was slightly elevated (132 mg/dl) when it was last checked in April 2023 Reinforced low cholesterol diet Will recheck his labs and fasting lipids in 6 months for follow up (3) Elevated prostate specific antigen [PSA]: Code(s): R97.20 - Elevated prostate specific antigen [PSA] Plan: He has been recommended by urology to continue observation Continue Finasteride 5 mg QD Follow up with urology as scheduled (4) Arthritis, multiple joint involvement: Code(s): M12.9 - Arthropathy, unspecified Plan: May continue current OTC supplements (see med list), which he feels are helping with majority of his symptoms He is encouraged to continue staying active and exercising regularly to help manage his joint pains better He takes Ibuprofen 600 mg PRN for pain with adequate pain relief Plan To return in 6 months for his next annual physical examination Orders: Orders Lipid Panel 6 Months E78.00 - Pure hypercholesterolemia, unspecified, Z00.00 - Encounter for general adult medical examination without abnormal findings Vitamin D 25-OH Total 6 Months E55.9 - Vitamin D deficiency, unspecified, Z00.00 - Encounter for general adult medical examination without abnormal findin gs Complete Blood Count Auto Diff 6 Months D64.9 - Anemia, unspecified, Z00.00 - Encounter for general adult medical examination without abnormal findings Comprehensive [place]. Panel Fast 6 Months E78.00 - Pure hypercholesterolemia, unspecified, Z00.00 - Encounter for general adult medical examination without abnormal findings TSH reflex Free T4 6 Months E78.00 - Pure hypercholesterolemia, unspecified, Z00.00 - Encounter for general adult medical examination without abnormal findings UA CC w/rflx Micro + Cult 6 Months R30.0 - Dysuria, Z00.00 - Encounter for general adult medical examination without abnormal findings Coding Level of Care Code Est Pt Level 4 (77589) Diagnoses Elevated blood pressure reading R03.0 Pure hypercholesterolemia E78.00 Elevated prostate specific antigen [PSA] R97.20 Arthritis, multiple joint involvement M12.9
[2023-11-20 10:15] VITALS: BP 140/86
== END 2023-11-20 10:21 | disposition home or self-care (01) ==
PROVIDERS: PCP Internal Medicine; Visit Provider Internal Medicine
DX: R03.0 Elevated blood-pressure reading, without diagnosis of hypertension (principal); E78.00 Pure hypercholesterolemia, unspecified; R97.20 Elevated prostate specific antigen [PSA]; M12.9 Arthropathy, unspecified
CPT/HCPCS: 99214

== ENCOUNTER 2024-03-28 06:59 | Outpatient (REF) | payer MEDICARE, SELFPAY ==
[2024-03-28 08:45] LABS: PSA,Total (Free>4and<10) 5.15 ng/mL (0.00-4.00)
[2024-04-01 11:08] LABS: Free Prostate Spec Ag 0.6 ng/mL; Percent Free Prostate Spec Ag 11 % (calc) (>25); Prostate Specific Ag Total 5.3 ng/mL (< OR = 4.0)
== END 2024-03-28 07:00 | disposition home or self-care (01) ==
LOC: HO.LAB 06:59
PROVIDERS: PCP Internal Medicine; Visit Provider Urology
DX: R97.20 Elevated prostate specific antigen [PSA] (principal); Z12.5 Encounter for screening for malignant neoplasm of prostate
CPT/HCPCS: 36415; 84153; 84154

== ENCOUNTER 2024-04-04 10:21 | Outpatient (AMB) | payer MEDICARE, SELFPAY ==
--- NOTE | 2024-04-04 10:26 | A.OFFVIS_ITS ---
Intake Visit Reasons: 6m/PSA(set) Intake Note: Patient is Present for Follow Up PSA Urology Medication: Finasteride, Sildenafil Antibiotic Allergies:None Blood Thinners: None Machine Brusher Required: No Accompanied by: Self / Same As Patient Allergies vaccine adjuvant system, AS01B lipo [From Shingrix (PF)] Adverse Reaction (Intermediate, Verified 04/04/24 10:27) joint pains; muscle weakness varicella-zoster virus glycoprotein [From Shingrix (PF)] Adverse Reaction (Intermediate, Verified 04/04/24 10:27) joint pains; muscle weakness HPI Comments Details: Tesfaye is a pleasant male. He is seen for the following urologic conditions - elevated PSA - erectile dysfunction Continued PSA increase Recommend prostate biopsy PCPT 25% high-risk Will schedule Elevated PSA Marginal PSA for age PSA 05/19 4.9, 08/21 6.3 19%, 02/18 3.5 +F, 08/22 4.3, 03/22 5.3 11% Minimal lower urinary tract symptoms KARELY 2+ on exam No nodules Erectile dysfunction Responsive to sildenafil PFSH Medical History Pure hypercholesterolemia Sessile colonic polyp Elevated prostate specific antigen [PSA] Elevated blood pressure reading Arthritis, multiple joint involvement Surgical History Hx of bilateral cataract extraction History of right inguinal hernia repair (~01/27/22) Hx of colonoscopy History of appendectomy Family History Mother Cancer Father Heart attack Social History Housing: House Are you a primary health care administrator to a significant other at home: No Do you presently have visiting nurse or other home services: No Alcohol intake: current Alcohol intake frequency: a few times a month Patient Tobacco Use Status: Never used Tobacco e-Cigarette/Vaping Use: Never Used Second Hand Smoke Exposure: Yes service: No Current occupational status: employed and unemployed Cognitive needs: No Hearing needs: No Vision needs: Yes Review of Systems Const Denies chills and Denies fever(s) Card Reports no additional complaints and Denies syncope Resp Denies cough GI Denies abdominal pain and Denies heartburn Reports as per HPI and Denies change in libido Neuro Denies syncope Psych Denies change in libido Endo Denies change in libido Physical Exam Const General: cooperative, healthy appearing, comfortable and no acute distress Orientation/consciousness: patient oriented x3 HEENT Face and sinus: Yes normal facial exam Mouth: moist mucous membranes Neck Neck: Yes normal visual inspection, Yes full ROM and Yes trachea midline Chest Chest palpation & inspection: normal inspection of the chest Resp Effort & Inspection: normal respiratory effort, able to speak in complete sentences and no respiratory distress GI Inspection: Yes normal to inspection Back/Spine/Pelvis Cervical Spine: normal cervical lordosis Thoracic/Lumbar Spine: thoracic and lumbar spine normal to inspection Skin General skin exam: no rashes or lesions noted Neuro General: patient oriented x3, gait normal, tone normal and moves all extremities Extrem General: Yes normal to inspection and Yes capillary refill normal Assessment & Plan Assessment & Plan (1) Elevated prostate specific antigen [PSA]: Code(s): R97.20 - Elevated prostate specific antigen [PSA] Category: Medical (2) 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 Options of continued surveillance, no treatment and biopsy were offered. The risks include but are not limited to, urinary tract infection, sepsis, difficulty urinating, bleeding into the rectum or bladder that requires intervention and transfusion,and failure to diagnose prostate cancer. The patient understands the options and the risks involved. They wish to proceed. Printed information was provided to ensure he remains off anticoagulation for the appropriate length of time. He may require cardiology or PCP clearance. An antibiotic will be administered prior to, and following the procedure Medications: New levofloxacin Take day before, day of and day after procedure 500 mg PO ONCE 3 days 3 tabs 0RF N32.0 - Bladder-neck obstruction, R97.20 - Elevated prostate specific antigen [PSA] Patient Instructions: Imaging studies, laboratory and physical exam results were discussed and reviewed in detail. No major barriers to patient understanding were identified. An opportunity to ask questions regarding the treatment plan was provided. All questions were answered. The patient expressed understanding and agreement with the above treatment plan. The patient is aware they should contact our office by phone for worsening of their current condition or the appearance of new urologic symptoms. Compliance is encouraged with any medications and followup testing that is ordered. It is a privilege to participate in the urologic care of your patient. If you have any questions or concerns regarding treatment for the above conditions, or other urologic issues, please do not hesitate to contact me. The office telephone contact is [phone]. This note is constructed using voice recognition software. While every effort has been made to ensure accuracy biomedical engineering supervisor errors may have been included. Yours sincerely, Dr Orestes Jensen MD, BRET [facility] - Urology Providers of Expert, Compassionate Care for the Genitourinary System Coding Level of Care Code Est Pt Level 4 (67013) Diagnoses Elevated prostate specific antigen [PSA] R97.20 Bladder outlet obstruction N32.0
== END 2024-04-04 10:45 | disposition home or self-care (01) ==
PROVIDERS: PCP Internal Medicine; Visit Provider Urology
DX: R97.20 Elevated prostate specific antigen [PSA] (principal); N32.0 Bladder-neck obstruction
CPT/HCPCS: 99214

== ENCOUNTER → 2024-04-04 10:21 | Outpatient (BNVA) | payer MEDICARE, SELFPAY | PROVIDERS: PCP Internal Medicine; Visit Provider Urology | DX: R97.20 Elevated prostate specific antigen [PSA] (principal); N20.0 Calculus of kidney | CPT/HCPCS: 99212 ==

== ENCOUNTER 2024-05-13 07:49 | Outpatient (REF) | payer MEDICARE, SELFPAY ==
[2024-05-13] MEDS: Lidocaine HCl 1 % MPF 5 ML VIAL 10 ML SUBCUT (09:21)
--- NOTE | 2024-05-13 12:43 | P.OP_ITS ---
Operative Note Operative Note Date of Service: 05/13/24 Narrative: Preoperative diagnosis: Elevated PSA Postoperative diagnosis: Elevated PSA Procedure: 1. transrectal ultrasound measurement of prostate 2. transrectal ultrasound-guided pudendal nerve block 3. transrectal ultrasound-guided prostate biopsy 12 core Surgeon: Dr. Orestes Jensen Anesthetic: 10cc 1% lidocaine Indications for procedure: Elevated PSA Counselling: Technical aspects, risks and benefits of proposed procedure were discussed in full. All questions have been answered, written consent has been obtained and patient agrees to proceed. Procedure: The patient was brought into the procedure area and placed in a left lateral decubitus position. Patient identity confirmed. Perioperative antibiotics confirmed. Safety pause time out performed. KARELY was performed to dilate rectal sphincter Iodine 10cc with 60 cc gel was placed per rectum to reduce infection risk using a catheter tip syringe. 8 Hz Jose rectal end-fire ultrasound probe was placed transrectally without difficulty. The prostate was visualized. Seminal vesicles were normal. Prostate margins were clearly demarcated. Bladder was seen superiorly. No cystic structures were noted Yes - calcifications were noted at the surgical margin The prostate was otherwise homogeneous in nature The prostate was measured in 3 dimensions Prostatic Width: 4.9 cm Prostatic Height: 3.7 cm Urethral Length: 3.9 cm Total volume equals : 38 ml An ultrasound-guided pudendal nerve block was performed using a 22 gauge spinal needle in the sagittal plane. 4 cc of 1% lidocaine placed at the junction of each seminal vesicle and 2 cc placed at the apex of the prostate. A 12 core biopsy was performed with 6 cores each side using an 18 gauge prostate biopsy gun. Two cores each were taken at the prostate apex, mid and base on each side. Cores were spaced between lateral and medial aspects. Each core was examined as placed on specimen foam as part of quality facilitator to ensure a minimum 1 cm of length and minimal discontinuity. He tolerated the procedure well with minimal rectal bleeding. Blood pressure remained stable following procedure. He was able to ambulate to bathroom after 5 minutes. Printed instructions regarding antibiotic use and common adverse events from the procedure such as low-grade temperature, potential infection and bleeding were given. He understands to call the office or go to an emergency room should any of these events arise. Pathology: 12 core prostate biopsy. CPT code 78134: Transrectal ultrasound; this is a diagnostic test for evaluation of the prostate and surrounding structures, looking for abnormalities or suspicious areas worrisome for cancer CPT code 11453: Biopsy, prostate; needle or punch, single or multiple, any approach CPT code 85516: Ultrasonic guidance for needle placement (eg, biopsy, aspiration, injection, localization device), imaging supervision and interpretation
== END 2024-05-13 07:50 | disposition home or self-care (01) ==
LOC: HO.US 07:49
PROVIDERS: PCP Internal Medicine; Visit Provider Urology
DX: R97.20 Elevated prostate specific antigen [PSA] (principal)
CPT/HCPCS: 55700; 76942; 88305; J2003

== ENCOUNTER → 2024-05-13 07:49 | Outpatient (BNV) | payer MEDICARE, SELFPAY | PROVIDERS: PCP Internal Medicine; Visit Provider Urology | DX: R97.20 Elevated prostate specific antigen [PSA] (principal) | CPT/HCPCS: 55700; 76872; 76942 ==

== ENCOUNTER 2024-05-20 07:56 | Outpatient (REF) | payer MEDICARE, SELFPAY ==
[2024-05-20 08:19] LABS: MANUAL DIFF FLAG NO
[2024-05-20 09:01] LABS: Basophils Percent Auto 0.7 % (0-2); Eosinophils Absolute Auto 0.3 X10*3/uL (0.0-0.4); Hematocrit 40.2 % (42.0-52.0); Hemoglobin 13.6 g/dl (14.0-18.0); Imm Gran Abs Auto 0.01 X10*3/uL (0.00-0.03); Imm Gran Pct Auto 0.2 % (0.0-0.4); Lymphocytes Absolute Auto 1.2 X10*3/uL (1.2-4.9); Lymphocytes Percent Auto 22.5 % (20-40); Mean Corpuscular HGB Conc 33.8 g/dl (31.0-36.0); Mean Corpuscular Hemoglobin 31.5 pg (27.0-33.0); Mean Corpuscular Volume 93.1 fL (80.0-98.0); Mean Platelet Volume 9.6 fL (9.4-12.4); Monocytes Absolute Auto 0.4 X10*3/uL (0.1-1.2); Monocytes Percent Auto 8.2 % (2-11); Neutrophils Absolute Auto 3.4 x10*3/uL (2.0-8.3); Neutrophils Percent Auto 63.4 % (45-73); Platelet Count 252 X10*3/uL (160-400); Red Blood Count 4.32 X10*6/uL (4.60-5.80); Red Cell Distribution Width 12.3 % (11.0-16.0); White Blood Count 5.4 X10*3/uL (4.8-10.8)
[2024-05-20 09:30] LABS: Appearance Urine Turbid; Color Urine Yellow; Glucose Urine UA Negative (Negative); Leukocyte Esterase Urine Negative (Negative); Nitrite Urine Negative (Negative); PH 8.5 (5.0-9.0); Specific Gravity - Urine 1.015 (1.005-1.025); UMIC TRIGGER UACC YES; Urine Blood Moderate (2+) (Negative); Urine Ketones Negative (Negative); Urine Protein Negative (Neg-Trace)
[2024-05-20 09:35] LABS: Bacteria Urine None Seen (None Seen); Hyaline Casts Urine 0-2 /LPF (0-2); RBC Urine >20 /HPF (0-2); Squamous Epithelial Cell Urine 0-2 /HPF (0-2); WBC Urine 0-5 /HPF (0-5)
[2024-05-20 09:47] LABS: Alanine Aminotransferase 22 U/L (0-40); Albumin Level 4.2 g/dL (3.5-5.0); Alkaline Phosphatase 101 U/L (39-117); Anion Gap 9 (12-20); Aspartate Amino Transferase 33 U/L (5-37); Bilirubin Total 0.5 mg/dL (0.0-1.0); Blood Urea Nitrogen 16 mg/dL (9-16); Calcium 9.7 mg/dL (8.4-10.2); Carbon Dioxide 31 mmol/L (22-29); Chloride 107 mmol/L (96-108); Cholesterol 194 mg/dL (<200); Estimated Glomerular Filt Rate > 60; Glucose Fasting 92 mg/dL (60-99); HDL Cholesterol 80 mg/dL (>40); LDL Cholesterol Calculated 101 mg/dL (<100); Potassium 4.2 mmol/L (3.3-5.1); Sodium 143 mmol/L (135-145); Total Protein 6.8 g/dL (6.5-8.0); Triglycerides 65 mg/dL (<150)
[2024-05-20 09:54] LABS: TSH reflex Free T4 2.33 uIU/mL (0.32-4.0); Vitamin D 25-OH Total 84.4 ng/mL (>30)
== END 2024-05-20 07:57 | disposition home or self-care (01) ==
LOC: HO.LAB 07:56
PROVIDERS: PCP Internal Medicine; Visit Provider Internal Medicine
DX: Z00.00 Encounter for general adult medical examination without abnormal findings (principal); D64.9 Anemia, unspecified; E78.00 Pure hypercholesterolemia, unspecified; E55.9 Vitamin D deficiency, unspecified; R30.0 Dysuria
CPT/HCPCS: 36415; 80053; 80061; 81001; 81003; 82306; 84443; 85025

== ENCOUNTER 2024-05-29 09:11 | Outpatient (AMB) | payer MEDICARE, SELFPAY ==
[2024-05-29 09:25] VITALS: BP 148/90; PULSE 65; O2SAT 99; BMI 23.7
--- NOTE | 2024-05-29 09:25 | A.OFFPC_ITS ---
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: No Accompanied by: Self / Same As Patient Allergies vaccine adjuvant system, AS01B lipo [From Shingrix (PF)] Adverse Reaction (Intermediate, Verified 05/29/24 09:51) joint pains; muscle weakness varicella-zoster virus glycoprotein [From Shingrix (PF)] Adverse Reaction (Intermediate, Verified 05/29/24 09:51) joint pains; muscle weakness Medication List - Last Reconciled 05/29/24 by Zechariah Alfaro MD antiarthritic combination no.2 (glucosamine-chondroitin) 1 tablet PO 2 times a day; ascorbic acid (vitamin C) 500 mg PO DAILY [Boswellia 250 mg PO DAILY] calcium carb-mag ox-zinc sulf 333-133-5 mg 1 tab PO DAILY ferrous sulfate (Feosol) 325 mg PO .weekly finasteride 5 mg PO DAILY 90 days [Gingko Biloba 120 mg PO DAILY] ginseng 500 mg PO DAILY ibuprofen 600 mg PO Q6H PRN levofloxacin 500 mg PO ONCE 3 days omega 5-vnn-dkl-fish oil 360-1,200 mg (Fish Oil) 1 cap PO TID saw palmetto 450 mg PO DAILY [Senior [employer] Vision 1 tablet daily; ] sildenafil 50 mg PO DAILY PRN 30 days turmeric 800 mg PO DAILY Tobacco use date assessed: 05/29/24 Fall risk assessment: 1 Fall in past year Last assessed Fall Risk: 05/29/24 Dental Screening Dental Screen Date: 05/29/24 Did you have a dental visit in the last 12 months?: Yes Did you have a dental problem in the last 6 months where you did not have access to dental care?: No Was dental information given to patient?: Patient has dentist HPI annual PE HPI Details Patient comes in today for his annual physical examination States that he feels okay Relates that he slipped on some wet leaves while walking a few days ago and fell Thinks that he tried to break his fall with his right arm as he has been experiencing some soreness and pain over his right upper back (behind his right shoulder and above his scapula) since States that he does not think it is more serious than a sprain as he is able to move his right arm and shoulder without any restriction (other than the pain) and that his symptoms are starting to feel a little better now He also sustained some abrasions on his parietal scalp area as well as over his right lower lip He also noticed a tick on his right forearm the other day and was able to remove it - thinks that thetick was on him for about a day and it did look like it was a deer tick Adds that he has a prostate Bx done with Dr. Jensen a couple of weeks ago and just found out this morning that one of his sample came back positive for cancer He has a video conference scheduled with Dr. Jensen to discuss his findings further in a few minutes Adds that he noticed a large lump under his right jaw the day after his biopsy and the nodule is still present and is slightly painful on palpation He denies any headaches or dizziness; denies any recent fever or sore throat Denies any chest pains, no SOB No nausea/vomiting, no abdominal pain No change in bowel habits noted He denies any acute urinary symptoms States that his joint pains remain adequately controlled on his current regimen of OTC supplements and regular physical activity and exercise He had his follow up labs done last week - to discuss his results He is up-to-date with his colon cancer screening - he had his last colonoscopy done with Dr. Li a couple of years ago in 2021 - was recommended to get a repeat colonoscopy in 5 years (2026) if his health will allow PFSH Medical History Pure hypercholesterolemia Sessile colonic polyp Elevated prostate specific antigen [PSA] Elevated blood pressure reading Arthritis, multiple joint involvement Surgical History Hx of bilateral cataract extraction History of right inguinal hernia repair (~01/27/22) Hx of colonoscopy History of appendectomy Family History Mother Cancer Father Heart attack Social History Housing: House Are you a primary career placement specialist to a significant other at home: No Do you presently have visiting nurse or other home services: No Alcohol intake: current Alcohol intake frequency: a few times a month Patient Tobacco Use Status: Never used Tobacco e-Cigarette/Vaping Use: Never Used Second Hand Smoke Exposure: Yes service: No Current occupational status: employed and unemployed Cognitive needs: No Hearing needs: No Vision needs: Yes Questionnaire PHQ-9 Over the last 2 weeks, how often have you been bothered by any of the following problems? 1. Little interest or pleasure in doing things: not at all 2. Feeling down, depressed, or hopeless: not at all 3. Trouble falling or staying asleep, or sleeping too much: not at all 4. Feeling tired or having little energy: not at all 5. Poor appetite or overeating: not at all 6. Feeling bad about yourself - or that you are a failure or have let yourself or your family down: not at all 7. Trouble concentrating on things, such as reading the newspaper or watching television: not at all 8. Moving or speaking so slowly that other people could have noticed. Or the opposite - being so fidgety or restless that you have been moving around a lot more than usual: not at all 9. Thoughts that you would be better off or of hurting yourself in some way: not at all Total score: 0 Depression Screening Interpretation: Negative Depression Screening Done: Yes 73262 - PHQ-9 Billing: Yes Source: Developed by Drs. Sanjay Tanner, Opal Mi, Joseph Rankin and colleagues, with an educational dea from [employer]. Thrive Questionnaire Date Thrive assessed: 05/29/24 I am a: Patient What is your living situation today?: I have a steady place to live Within the past 12 months, did the food you bought not last and you didn't have the money to get more?: Never true Within the past 12 months, did you worry whether your food would run out before you got money to buy more?: Never true Do you have trouble paying for medicines?: No Do you have trouble getting transportation to medical appointments?: No Do you have trouble paying your heating and electricity bill?: No Do you have trouble taking care of your child, family member or friend?: No Do you have trouble with day-to-day activities such as bathing, preparing meals, shopping, managing finances, etc.?: No Are you currently unemployed and looking for a job?: No Are you interested in more education?: No Please select the resources that you would like help with: None Currently or been in a relationship where the following occur: No concerns reported THRIVE Score: 0 AUDIT C Alcohol Use Questionnaire (AUDIT-C) 1. How often do you have a drink containing alcohol?: Monthly or less 2. How many drinks containing alcohol do you have on a typical day when you are drinking?: 1 or 2 3. How often do you have six or more drinks on one occasion?: Never Total Score: 1 Score Reviewed/Action Taken: Yes MORTEZA-7 AMB Questionnaire MORTEZA-7 Date MORTEZA - 7 assessed: 05/29/24 Feeling nervous, anxious, or on edge: 0 = Not at all Not being able to stop or control worryin = Not at all Worrying too much about different things: 0 = Not at all Trouble relaxin = Not at all Being so restless that it is hard to sit still: 0 = Not at all Becoming easily annoyed or irritable: 0 = Not at all Feeling afraid as if something awful might happen: 0 = Not at all Total MORTEZA-7 score (0-4 normal; 5-9 mild; 10-14 moderate; 15-21 severe): 0 Source: Developed by Drs. Sanjay Tanner, Opal Mi, Joseph Rankin and colleagues, with an educational dea from [employer]. Review of Systems Const Denies chills, Denies fatigue, Denies fever(s), Denies headache(s), Denies malaise and Denies weakness Eyes Denies blurry vision, Denies change in vision, Denies irritation and Denies itchy eyes ENT Details: (+) small abrasion over the right lower lip; (+) large palpable nodule on the right side of the neck under the right jaw Denies dysphagia, Denies dizziness, Denies otalgia, Denies headache(s), Denies nasal congestion, Denies neck pain, Denies odynophagia and Denies sore throat Card Denies chest pain, Denies rapid heart rate, Denies irregular heart rhythm, Denies palpitations and Denies dyspnea Resp Denies chest congestion, Denies cough, Denies dyspnea and Denies wheezing GI Denies abdominal pain, Denies bloating, Denies constipation, Denies dysphagia, Denies heartburn, Denies diarrhea, Denies nausea, Denies odynophagia and Denies vomiting Reports hematuria (occasional, mild - s/p prostate Bx 2 weeks ago), Denies di fficulty urinating, Denies dysuria, Denies urinary frequency and Denies urinary urgency Musc Details: (+) pain over the right upper back (behind the shoulder) from his fall a few days ago - see HPI Denies back pain, Reports arthralgias (on and off but are mostly controlled/manageable), Denies joint swelling, Denies muscle weakness and Denies neck pain Skin/Breast Details: (+) large area of abrasion onthe parietal scalp area Denies change in pigmentation, Denies rash and Denies unusual bruising Neuro Denies dizziness, Denies headache(s), Denies paresthesias and Denies weakness Endo Denies fatigue and Denies palpitations Aller/Immun Denies itchy eyes and Denies wheezing Physical exam (Primary Care) Vital Signs: Last Vital Signs Pulse 65 05/29/24 09:25 BP 148/90 H 05/29/24 09:25 Pulse Ox 99 05/29/24 09:25 Oxygen Delivery Method Room Air 05/29/24 09:25 BMI result Body Mass Index 23.7 Tobacco/Smoking Status: Tobacco use Status Tobacco use date assessed 05/29/24 05/29/24 09:32 Patient Tobacco Use Status Never used Tobacco 05/29/24 09:25 e-Cigarette/Vaping Use Never Used 05/29/24 09:25 PHQ-9: PHQ-9 Score PHQ-9: Total score 0 05/29/24 09:33 Depression Screening Interpretation: Negative Thrive Assessment: Date of Thrive Assessment Date Thrive assessed 05/29/24 05/29/24 09:32 Currently or been in a relationship where the following occur: No concerns reported Const General: no acute distress, alert and awake Orientation/consciousness: patient oriented x3 HENMT Other: (+) small abrasion on the right lower lip Head: Yes normocephalic and Yes atraumatic Ears: external ears normal, TM's normal bilaterally and EAC's normal General nose exam: No nasal discharge present Face and sinus: Yes normal facial exam and Yes sinuses nontender Teeth and gingiva: dentition normal Throat: Yes posterior oropharynx normal and Yes tonsils normal (no TP congestion) Eyes Eyelids: Yes eyelids normal Conjunctivae: conjunctivae normal Pupils: Equal, round and reactive pupils present EOM: EOMs intact bilaterally Neck Other: (+) palpable nodule on the right side of the neck under the right mandible Neck: Yes no lymphadenopathy and Yes supple Thyroid: Thyroid normal Resp Auscultation: clear to auscultation bilaterally, no rales and no wheezes Cardio Rate: regular rate Rhythm: regular rhythm Heart sounds: no murmurs GI Palpation (GI): Soft to palpation, nontender and No hepatosplenomegaly present Auscultation: normal bowel sounds General: Yes no CVA tenderness Back/Spine/Pelvis Other: (+) tenderness over the right upper back (behind the right shoulder and above th e right scapula) Back: no CVA tenderness Thoracic/Lumbar Spine: thoracic and lumbar spine normal to inspection Skin Other: (+) abrasion injury on the parietal scalp area; (+) crusted tick bite lesion on the right forearm Lesions: no lesions Rashes: no rashes Neuro General: patient oriented x3, moves all extremities, no focal motor deficits and CN's II-XI intact bilaterally Cranial nerves: Yes Equal, round and reactive pupils present Cognition (Neuro): normal cognition Gait exam (Neuro): Normal gait present Extrem General: Yes no clubbing, cyanosis or edema Office Procedures Flu Questionnaire Does the patient have a severe egg allergy?: No Immunizations Fluarix Triv [id number] (PF) 45 mcg (15 mcg x 3)/0.5 mL IM syringe Performing Provider: Zechariah Alfaro MD [facility] [place] [facility] Documented (not given) by: MICHELE Bxo on 05/29/24 09:33 Reason Not Given: Received Previously Results Reviewed Results Reviewed: Laboratory Tests 05/20/24 08:14 WBC 5.4 Hgb 13.6 L Hct 40.2 L Plt Count 252 Sodium 143 Potassium 4.2 Creatinine 1.00 Estimated GFR > 60 Fasting Glucose 92 Calcium 9.7 AST 33 ALT 22 Triglycerides 65 Cholesterol 194 LDL Cholesterol, Calc 101 H HDL Cholesterol 80 25-OH Vitamin D Total 84.4 TSH 2.33 Ur Specific [place] 1.015 Urine Protein Negative Urine Glucose (UA) Negative Urine Blood Moderate (2+) H Urine Nitrite Negative Ur Leukocyte Esterase Negative Coding Level of Care Code Est Pt Prev Care >65y(48351) Diagnoses Annual physical exam Z00.00 Elevated blood pressure reading R03.0 Arthritis, multiple joint involvement M12.9 Prostate cancer C61 Nodule of neck R22.1 Pure hypercholesterolemia E78.00 Erectile dysfunction, unspecified erectile dysfunction type N52.9 Erectile dysfunction type: unspecified Upper back pain on right side M54.9 Abrasion, scalp w/o infection S00.01XA Tick bite of right forearm, sequela S50.861S; W57.XXXS Encounter type: sequela Assessment & Plan Assessment & Plan (1) Annual physical exam: Code(s): Z00.00 - Encounter for general adult medical examination without abnormal findings Category: Medical Plan: Results of his labs done last week reviewed and discussed with patient He is up-to-date with his colon cancer screening - will be due for repeat colonoscopy in 2026, health permitting (2) Elevated blood pressure reading: Code(s): R03.0 - Elevated blood-pressure reading, without diagnosis of hypertension Category: Medical Plan: Reinforced low sodium diet Patient states that his BP is usually consistent and mostly lower when he checks it at home He is advised to continue monitoring his blood pressure regularly - systolic BP should ideally be at least 130 to 140 mm or less (3) Arthritis, multiple joint involvement: Code(s): M12.9 - Arthropathy, unspecified Category: Medical Plan: Continue current OTC supplements (see med list), which he feels are helping with majority of his symptoms He is encouraged to continue staying active and exercising regularly to help manage his joint pains better He takes Ibuprofen 600 mg PRN for pain with adequate pain relief (4) Prostate cancer: Code(s): C61 - Malignant neoplasm of prostate Category: Medical Plan: His prostate Bx came back positive for adenocarcinoma - patient states that he just found out about this earlier this morning and has a video conference with urology in a few minutes to discuss this further Follow up with urology as scheduled Continue Finasteride 5 mg QD (5) Nodule of neck: Code(s): R22.1 - Localized swelling, mass and lump, neck Category: Medical Plan: Will send him for a soft tissue US of the neck for further evaluation (6) Pure hypercholesterolemia: Code(s): E78.00 - Pure hypercholesterolemia, unspecified Category: Medical Plan: He is advised that his LDL cholesterol level has improved significantly from previous on his recent labs and it is now down to 101 mg/dl from 132 mg/dl previously Reinforced low cholesterol diet Will recheck his labs and fasting lipids in 6 months for follow up (7) Erectile dysfunction: Code(s): N52.9 - Male erectile dysfunction, unspecified Category: Medical Qualifiers: Erectile dysfunction type: unspecified Qualified Code(s): N52.9 - Male erectile dysfunction, unspecified Plan: Continue Sildenafil 50 mg PRN (8) Upper back pain on right side: Code(s): M54.9 - Dorsalgia, unspecified Category: Medical Plan: This is most likely due to his recent fall and patient feels that this is slowly improving He does not appear to have any significant limitation of ROM of his right shoulder and can continue to observe this for now He is advised to call if he feels that this is getting worse or not improving as it should over the next week or so - may need x-rays then for further evaluation (9) Abrasion, scalp w/o infection: Code(s): S00.01XA - Abrasion of scalp, initial encounter Category: Medical Plan: He is instructed tojust continue with daily wound care - abrasion on his parietal scalp appears to be healing well with no evidence of infection at present (10) Tick bite of right forearm: Code(s): S50.861A - Insect bite (nonvenomous) of right forearm, initial encounter; W57.XXXA - Bitten or stung by nonvenomous insect and other nonvenomous arthropods, initial encounter Category: Medical Qualifiers: Encounter type: sequela Qualified Code(s): S50.861S - Insect bite (nonvenomous) of right forearm, sequela; W57.XXXS - Bitten or stung by nonvenomous insect and other nonvenomous arthropods, sequela Plan: Will start him on prophylactic Tx with Doxycycline 200 mg QD x 1 dose Plan Follow up in 6 months Orders: Orders US soft tiss head and/or neck Today R22.1 - Localized swelling, mass and lump, neck Complete Blood Count Auto Diff 6 Months D64.9 - Anemia, unspecified Influenza [id number] Immunization Today Z23 - Encounter for immunization Comprehensive [place]. Panel Fast 6 Months E78.00 - Pure hypercholesterolemia, unspecified Lipid Panel 6 Months E78.00 - Pure hypercholesterolemia, unspecified Medications: New doxycycline monohydrate 200 mg (2 x 100 mg) PO ONCE 1 day 2 caps 0RF Lyme disease prophylaxis
== END 2024-05-29 10:11 | disposition home or self-care (01) ==
LOC: HO.HMCH 09:11
PROVIDERS: PCP Internal Medicine; Visit Provider Internal Medicine
DX: Z00.00 Encounter for general adult medical examination without abnormal findings (principal); R03.0 Elevated blood-pressure reading, without diagnosis of hypertension; M12.9 Arthropathy, unspecified; C61 Malignant neoplasm of prostate; R22.1 Localized swelling, mass and lump, neck; E78.00 Pure hypercholesterolemia, unspecified; N52.9 Male erectile dysfunction, unspecified; M54.9 Dorsalgia, unspecified; S00.01XA Abrasion of scalp, initial encounter; S50.8 Other superficial injuries of forearm; W57.XXXS Bitten or stung by nonvenomous insect and other nonvenomous arthropods, sequela; Z23 Encounter for immunization

== ENCOUNTER → 2024-05-29 09:11 | Outpatient (BNVA) | payer MEDICARE, SELFPAY | PROVIDERS: PCP Internal Medicine; Visit Provider Internal Medicine | DX: Z00.01 Encounter for general adult medical examination with abnormal findings (principal); R03.0 Elevated blood-pressure reading, without diagnosis of hypertension; M12.9 Arthropathy, unspecified; C61 Malignant neoplasm of prostate; R22.1 Localized swelling, mass and lump, neck; E78.00 Pure hypercholesterolemia, unspecified; N52.9 Male erectile dysfunction, unspecified; M54.9 Dorsalgia, unspecified; S00.01XD Abrasion of scalp, subsequent encounter; S50.8 Other superficial injuries of forearm; W57.XXXS Bitten or stung by nonvenomous insect and other nonvenomous arthropods, sequela | CPT/HCPCS: 90471; 96127; 99397 ==

== ENCOUNTER 2024-05-29 09:53 | Outpatient (AMB) | payer MEDICARE, SELFPAY ==
--- NOTE | 2024-05-29 09:54 | A.OFFVIS_ITS ---
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 He is seen for the following urologic conditions - elevated PSA - erectile dysfunction Telemedicine Evaluation 15 min Consultation [employer] Jeanine Video Discussed biopsy results Did have bleeding for 2-3 days following Plan MRI in 4 weeks and genetics Prostate cancer - April 2024 grade group 3, ultra low volume Initial PSA 5.3 Volume 40 cc PT1c Cameron score: 4+3=7 Grade group: 3 Number cores positive: 1 Total number of cores: 12 % of tissue involved: 5% of all tissue examined Periprostatic fat inv.: Not identified Seminal vesicle inv.: Not identified Perineural inv.: Present LVI: Not identified Elevated PSA Marginal PSA for age PSA 05/19 4.9, 08/21 6.3 19%, 02/18 3.5 +F, 08/22 4.3, 03/22 5.3 11% Minimal lower urinary tract symptoms KARELY 2+ on exam No nodules Erectile dysfunction Responsive to sildenafil PFSH Medical History Pure hypercholesterolemia Sessile colonic polyp Elevated prostate specific antigen [PSA] Elevated blood pressure reading Arthritis, multiple joint involvement Surgical History Hx of bilateral cataract extraction History of right inguinal hernia repair (~01/27/22) Hx of colonoscopy History of appendectomy Family History Mother Cancer Father Heart attack Social History Housing: House Are you a primary healthcare management consultant to a significant other at home: No Do you presently have visiting nurse or other home services: No Alcohol intake: current Alcohol intake frequency: a few times a month Patient Tobacco Use Status: Never used Tobacco e-Cigarette/Vaping Use: Never Used Second Hand Smoke Exposure: Yes service: No Current occupational status: employed and unemployed Cognitive needs: No Hearing needs: No Vision needs: Yes Review of Systems Const All systems reviewed & are unremarkable except as noted in HPI and below Reports no additional complaints Resp Reports no additional complaints GI Reports no additional complaints Reports as per HPI Musc Reports no additional complaints Physical Exam Telemedicine evaluation Appropriate responses Regular breathing rate and rhythm HEENT Head: Yes normal to inspection Ears: hearing grossly normal bilaterally Eyes General: appearance normal, both eyes and all related structures Neck Neck: Yes normal visual inspection Chest Chest palpation & inspection: normal inspection of the chest Resp Effort & Inspection: normal respiratory effort and able to speak in complete sentences Telehealth Telehealth Telehealth Platform: [employer] Location of provider rendering services: practice address Location of patient: address on file Patient Identification confirmed using: Name, : Yes Telehealth method: video Patient verbally consented to treatment: Yes Patient verbally consented to billing insurance company: Yes Patient informed of any privacy concerns related to visit: Yes Minutes spent on Phone/Video with Pt.: 15 Assessment & Plan Assessment & Plan (1) Prostate cancer: Code(s): C61 - Malignant neoplasm of prostate Category: Medical Plan Prostate MRI Genetics Orders: Orders MR pelvis wo/w con 4 Weeks C61 - Malignant neoplasm of prostate Patient Instructions: Imaging studies, laboratory and physical exam results were discussed and reviewed in detail. No major barriers to patient understanding were identified. An opportunity to ask questions regarding the treatment plan was provided. All questions were answered. The patient expressed understanding and agreement with the above treatment plan. The patient is aware they should contact our office by phone for worsening of their current condition or the appearance of new urologic symptoms. Compliance is encouraged with any medications and followup testing that is ordered. It is a privilege to participate in the urologic care of your patient. If you have any questions or concerns regarding treatment for the above conditions, or other urologic issues, please do not hesitate to contact me. The office telephone contact is [phone]. This note is constructed using voice recognition software. While every effort has been made to ensure accuracy herd tester errors may have been included. Yours sincerely, Dr Orestes Jensen MD, [facility] - Urology Providers of Expert, Compassionate Care for the Genitourinary System Coding Level of Care Code Tele Est Pt Level 4 (57153) Diagnoses Prostate cancer C61
== END 2024-05-29 10:58 | disposition home or self-care (01) ==
LOC: HO.HUSH 09:53
PROVIDERS: PCP Internal Medicine; Visit Provider Urology
DX: C61 Malignant neoplasm of prostate (principal)
CPT/HCPCS: 99214

== ENCOUNTER 2024-06-05 13:45 | Outpatient (REF) | payer MEDICARE, SELFPAY | END 2024-06-05 13:46 | disposition home or self-care (01) | LOC: HO.US 13:45 | PROVIDERS: PCP Internal Medicine; Visit Provider Internal Medicine | DX: R22.1 Localized swelling, mass and lump, neck (principal) | CPT/HCPCS: 76536 ==

== ENCOUNTER → 2024-06-19 08:11 | Outpatient (BNV) | payer MEDICARE, SELFPAY | PROVIDERS: PCP Internal Medicine; Visit Provider Radiology Diagnostic Radiology | DX: C61 Malignant neoplasm of prostate (principal) | CPT/HCPCS: 72197 ==

== ENCOUNTER 2024-06-19 08:12 | Outpatient (REF) | payer MEDICARE, SELFPAY ==
[2024-06-19] MEDS: gadobutroL 7.5 ML VIAL IVPUSH (09:33)
== END 2024-06-19 08:13 | disposition home or self-care (01) ==
LOC: HO.MRI 08:12
PROVIDERS: PCP Internal Medicine; Visit Provider Urology
DX: C61 Malignant neoplasm of prostate (principal)
CPT/HCPCS: 72197; A9585

== ENCOUNTER 2024-07-08 09:34 | Outpatient (AMB) | payer MEDICARE, SELFPAY ==
--- NOTE | 2024-07-08 09:53 | A.OFFVIS_ITS ---
Intake Visit Reasons: MRI follow up(set) Intake Note: Patient is present for MRI F/U Urology Medication:FINASTREIDE Antibiotic Allergy:NONE Blood Thinner:NONE Shank Inspector Required: No Allergies vaccine adjuvant system, AS01B lipo [From Shingrix (PF)] Adverse Reaction (Intermediate, Verified 07/08/24 09:54) joint pains; muscle weakness varicella-zoster virus glycoprotein [From Shingrix (PF)] Adverse Reaction (Intermediate, Verified 07/08/24 09:54) joint pains; muscle weakness HPI Comments Details: Tesfaye is a pleasant male. 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 At this point will initiate surveillance protocol Four month follow-up check PSA Alternating months finasteride Prostate cancer - April 2024 grade group 3, ultra low volume Initial PSA 5.3 Volume 40 cc PT1c 05/22 [place] score: 4+3=7 - Grade group: 3 Number cores positive: 1 Total number of cores: 12 % of tissue involved: 5% of all tissue examined Periprostatic fat inv.: Not identified Seminal vesicle inv.: Not identified Perineural inv.: Present LVI: Not identified Staging MRI pending Prolaris - borderline surveillance vs intervention CCS - low 3.2 Ten year mortality risk 4.1 %, threshold is 3.2% Elevated PSA Marginal PSA for age PSA 05/19 4.9, 08/21 6.3 19%, 02/18 3.5 +F, 08/22 4.3, 03/22 5.3 11% Minimal lower urinary tract symptoms KARELY 2+ on exam No nodules Erectile dysfunction Responsive to sildenafil PFSH Medical History Pure hypercholesterolemia Sessile colonic polyp Elevated prostate specific antigen [PSA] Elevated blood pressure reading Arthritis, multiple joint involvement Surgical History Hx of bilateral cataract extraction History of right inguinal hernia repair (~01/27/22) Hx of colonoscopy History of appendectomy Family History Mother Cancer Father Heart attack Social History Housing: House Are you a primary early breastfeeding care specialist to a significant other at home: No Do you presently have visiting nurse or other home services: No Alcohol intake: current Alcohol intake frequency: a few times a month Patient Tobacco Use Status: Never used Tobacco e-Cigarette/Vaping Use: Never Used Second Hand Smoke Exposure: Yes service: No Current occupational status: employed and unemployed Cognitive needs: No Hearing needs: No Vision needs: Yes Review of Systems Const Denies chills and Denies fever(s) Card Reports no additional complaints and Denies syncope Resp Denies cough GI Denies abdominal pain and Denies heartburn Reports as per HPI and Denies change in libido Neuro Denies syncope Psych Denies change in libido Endo Denies change in libido Physical Exam Const General: cooperative, healthy appearing, comfortable and no acute distress Orientation/consciousness: patient oriented x3 HEENT Face and sinus: Yes normal facial exam Mouth: moist mucous membranes Neck Neck: Yes normal visual inspection, Yes full ROM and Yes trachea midline Chest Chest palpation & inspection: normal inspection of the chest Resp Effort & Inspection: normal respiratory effort, able to speak in complete sentences and no respiratory distress GI Inspection: Yes normal to inspection Back/Spine/Pelvis Cervical Spine: normal cervical lordosis Thoracic/Lumbar Spine: thoracic and lumbar spine normal to inspection Skin General skin exam: no rashes or lesions noted Neuro General: patient oriented x3, gait normal, tone normal and moves all extremities Extrem General: Yes normal to inspection and Yes capillary refill normal Assessment & Plan Assessment & Plan (1) Prostate cancer: Comment: Low volume grade group 3 Code(s): C61 - Malignant neoplasm of prostate Category: Medical (2) Erectile dysfunction: Code(s): N52.9 - Male erectile dysfunction, unspecified Category: Medical Qualifiers: Erectile dysfunction type: unspecified Qualified Code(s): N52.9 - Male erectile dysfunction, unspecified (3) Bladder outlet obstruction: Code(s): N32.0 - Bladder-neck obstruction Category: Medical Plan Four month follow-up PSA Orders: Orders Prostate Specific Antigen 4 Months C61 - Malignant neoplasm of prostate Patient Instructions: Imaging studies, laboratory and physical exam results were discussed and reviewed in detail. No major barriers to patient understanding were identified. An opportunity to ask questions regarding the treatment plan was provided. All questions were answered. The patient expressed understanding and agreement with the above treatment plan. The patient is aware they should contact our office by phone for worsening of their current condition or the appearance of new urologic symptoms. Compliance is encouraged with any medications and followup testing that is ordered. It is a privilege to participate in the urologic care of your patient. If you have any questions or concerns regarding treatment for the above conditions, or other urologic issues, please do not hesitate to contact me. The office telephone contact is [phone]. This note is constructed using voice recognition software. While every effort has been made to ensure accuracy post commander errors may have been included. Yours sincerely, Dr Orestes Jensen MD, [facility] - Urology Providers of Expert, Compassionate Care for the Genitourinary System Coding Level of Care Code Est Pt Level 3 (70514) Diagnoses Prostate cancer C61 Erectile dysfunction, unspecified erectile dysfunction type N52.9 Erectile dysfunction type: unspecified Bladder outlet obstruction N32.0
== END 2024-07-08 10:37 | disposition home or self-care (01) ==
PROVIDERS: PCP Internal Medicine; Visit Provider Urology
DX: C61 Malignant neoplasm of prostate (principal); N52.9 Male erectile dysfunction, unspecified; N32.0 Bladder-neck obstruction
CPT/HCPCS: 99213

== ENCOUNTER → 2024-07-08 09:34 | Outpatient (BNVA) | payer MEDICARE, SELFPAY | PROVIDERS: PCP Internal Medicine; Visit Provider Urology | DX: C61 Malignant neoplasm of prostate (principal); N52.9 Male erectile dysfunction, unspecified; N32.0 Bladder-neck obstruction | CPT/HCPCS: 99212 ==

== ENCOUNTER 2024-09-02 08:56 | Outpatient (AMB) | payer MEDICARE, SELFPAY ==
--- NOTE | 2024-09-02 08:56 | MHC.OFFVIS ---
Intake Visit Reasons: Prostate MRI Intake Note: Patient is present for PROSTATE MRI Urology Medication:SILDENAFIL,FINASTERIDE Antibiotic Allergy:NONE Blood Thinner:NONE Computer Systems Security Administrator Required: No Allergies vaccine adjuvant system, AS01B lipo [From Shingrix (PF)] Adverse Reaction (Intermediate, Verified 09/02/24 08:57) joint pains; muscle weakness varicella-zoster virus glycoprotein [From Shingrix (PF)] Adverse Reaction (Intermediate, Verified 09/02/24 08:57) joint pains; muscle weakness HPI Comments Details: Tesfaye is a pleasant male. He is seen for the following urologic conditions - elevated PSA - erectile dysfunction Telemedicine Evaluation 15 min Consultation [employer] Jeanine Video attempted Discussed results from MRI Organ confined disease 8 mm PI-RADS 4 Plan for surveillance PSA while on finasteride Prostate cancer - April 2024 grade group 3, ultra low volume Initial PSA 5.3 Volume 40 cc PT1c 05/22 [place] score: 4+3=7 - Grade group: 3 Number cores positive: 1 Total number of cores: 12 - LBL 50% % of tissue involved: 5% of all tissue examined Periprostatic fat inv.: Not identified Seminal vesicle inv.: Not identified Perineural inv.: Present LVI: Not identified Staging MRI 06/22 volume 30 g, 8 mm PI-RADS 4 left posterolateral peripheral zone with abutment Prolaris - borderline surveillance vs intervention CCS - low 3.2 Ten year mortality risk 4.1 %, threshold is 3.2% Elevated PSA Marginal PSA for age PSA 05/19 4.9, 08/21 6.3 19%, 02/18 3.5 +F, 08/22 4.3, 03/22 5.3 11% Minimal lower urinary tract symptoms KARELY 2+ on exam No nodules Erectile dysfunction Responsive to sildenafil PFSH Medical History Pure hypercholesterolemia Sessile colonic polyp Elevated prostate specific antigen [PSA] Elevated blood pressure reading Arthritis, multiple joint involvement Surgical History Hx of bilateral cataract extraction History of right inguinal hernia repair (~01/27/22) Hx of colonoscopy History of appendectomy Family History Mother Cancer Father Heart attack Social History Housing: House Are you a primary career guidance counselor to a significant other at home: No Do you presently have visiting nurse or other home services: No Alcohol intake: current Alcohol intake frequency: a few times a month Patient Tobacco Use Status: Never used Tobacco e-Cigarette/Vaping Use: Never Used Second Hand Smoke Exposure: Yes service: No Current occupational status: employed and unemployed Cognitive needs: No Hearing needs: No Vision needs: Yes Review of Systems Const All systems reviewed & are unremarkable except as noted in HPI and below Reports no additional complaints Resp Reports no additional complaints GI Reports no additional complaints Reports as per HPI Musc Reports no additional complaints Physical Exam Telemedicine evaluation Appropriate responses Regular breathing rate and rhythm HEENT Head: Yes normal to inspection Ears: hearing grossly normal bilaterally Eyes General: appearance normal, both eyes and all related structures Neck Neck: Yes normal visual inspection Chest Chest palpation & inspection: normal inspection of the chest Resp Effort & Inspection: normal respiratory effort and able to speak in complete sentences Telehealth Telehealth Location of provider rendering services: practice address Location of patient: address on file Patient Identification confirmed using: Name, : Yes Telehealth method: voice only Patient verbally consented to treatment: Yes Patient verbally consented to billing insurance company: Yes Patient informed of any privacy concerns related to visit: Yes Assessment & Plan Assessment & Plan (1) Prostate cancer: Comment: Low volume grade group 3 Code(s): C61 - Malignant neoplasm of prostate Category: Medical (2) Bladder outlet obstruction: Code(s): N32.0 - Bladder-neck obstruction Category: Medical Plan Interval PSA surveillance Patient Instructions: This note is constructed using voice recognition software. While every effort has been made to ensure accuracy presiding judge errors may have been included. Imaging studies, laboratory and physical exam results were discussed and reviewed in detail. No major barriers to patient understanding were identified. An opportunity to ask questions regarding the treatment plan was provided. All questions were answered. The patient expressed understanding and agreement with the above treatment plan. The patient is aware they should contact our office by phone for worsening of their current condition or the appearance of new urologic symptoms. Compliance is encouraged with any medications and followup testing that is ordered. It is a privilege to participate in the urologic care of your patient. If you have any questions or concerns regarding treatment for the above conditions, or other urologic issues, please do not hesitate to contact me. The office telephone contact is [phone]. Sincerely, Dr Orestes Jensen MD, BRET [facility] - Urology Compassionate Specialist Care for the Genitourinary System Coding Level of Care Code Tele Est Pt Level 3 (26441) Diagnoses Prostate cancer C61 Bladder outlet obstruction N32.0
== END 2024-09-02 09:50 | disposition home or self-care (01) ==
LOC: HO.HUSH 08:56
PROVIDERS: PCP Internal Medicine; Visit Provider Urology
DX: C61 Malignant neoplasm of prostate (principal); N32.0 Bladder-neck obstruction
CPT/HCPCS: 98016

== ENCOUNTER 2024-10-23 07:44 | Outpatient (REF) | payer MEDICARE, SELFPAY | END 2024-10-23 07:45 | disposition home or self-care (01) | LOC: HO.LAB 07:44 | PROVIDERS: PCP Internal Medicine; Visit Provider Urology | DX: C61 Malignant neoplasm of prostate (principal) | CPT/HCPCS: 36415; 84153 ==

== ENCOUNTER 2024-11-05 08:33 | Outpatient (AMB) | payer MEDICARE, SELFPAY ==
--- NOTE | 2024-11-05 08:33 | A.OFFVIS_ITS ---
Intake Visit Reasons: Four month follow-up PSA tele Intake Note: Patient is present for 4M/PSA Urology Medication:FINASTERIDE Antibiotic Allergy:NONE Blood Thinner:NONE Floodplain Manager Required: No Allergies vaccine adjuvant system, AS01B lipo [From Shingrix (PF)] Adverse Reaction (Intermediate, Verified 11/05/24 08:34) joint pains; muscle weakness varicella-zoster virus glycoprotein [From Shingrix (PF)] Adverse Reaction (Intermediate, Verified 11/05/24 08:34) joint pains; muscle weakness HPI Comments Details: Tesfaye is a pleasant male. He is seen for the following urologic conditions - elevated PSA - erectile dysfunction Telemedicine Evaluation 15 min Consultation [employer] Jeanine Video attempted PSA 10/21 5.7 on finasteride Four month follow-up office PSA Prostate cancer - April 2024 grade group 3, ultra low volume Initial PSA 5.3 Volume 40 cc PT1c 05/22 [place] score: 4+3=7 - Grade group: 3 Number cores positive: 1 Total number of cores: 12 - LBL 50% % of tissue involved: 5% of all tissue examined Periprostatic fat inv.: Not identified Seminal vesicle inv.: Not identified Perineural inv.: Present LVI: Not identified Staging MRI 06/22 volume 30 g, 8 mm PI-RADS 4 left posterolateral peripheral zone with abutment Prolaris - borderline surveillance vs intervention CCS - low 3.2 Ten year mortality risk 4.1 %, threshold is 3.2% Elevated PSA Marginal PSA for age PSA 05/19 4.9, 08/21 6.3 19%, 02/18 3.5 +F, 08/22 4.3, 03/22 5.3 11% Minimal lower urinary tract symptoms KARELY 2+ on exam No nodules Erectile dysfunction Responsive to sildenafil PFSH Medical History Pure hypercholesterolemia Sessile colonic polyp Elevated prostate specific antigen [PSA] Elevated blood pressure reading Arthritis, multiple joint involvement Surgical History Hx of bilateral cataract extraction History of right inguinal hernia repair (~01/27/22) Hx of colonoscopy History of appendectomy Family History Mother Cancer Father Heart attack Social History Housing: House Are you a primary health care marketing manager to a significant other at home: No Do you presently have visiting nurse or other home services: No Alcohol intake: current Alcohol intake frequency: a few times a month Patient Tobacco Use Status: Never used Tobacco e-Cigarette/Vaping Use: Never Used Second Hand Smoke Exposure: Yes service: No Current occupational status: employed and unemployed Cognitive needs: No Hearing needs: No Vision needs: Yes Review of Systems Const All systems reviewed & are unremarkable except as noted in HPI and below Reports no additional complaints Resp Reports no additional complaints GI Reports no additional complaints Reports as per HPI Musc Reports no additional complaints Physical Exam Telemedicine evaluation Appropriate responses Regular breathing rate and rhythm HEENT Head: Yes normal to inspection Ears: hearing grossly normal bilaterally Eyes General: appearance normal, both eyes and all related structures Neck Neck: Yes normal visual inspection Chest Chest palpation & inspection: normal inspection of the chest Resp Effort & Inspection: normal respiratory effort and able to speak in complete sentences Telehealth Telehealth Telehealth Platform: [employer] Location of provider rendering services: practice address Location of patient: address on file Patient Identification confirmed using: Name, : Yes Telehealth method: video Patient verbally consented to treatment: Yes Patient verbally consented to billing insurance company: Yes Patient informed of any privacy concerns related to visit: Yes Minutes spent on Phone/Video with Pt.: 15 Assessment & Plan Assessment & Plan (1) Erectile dysfunction: Code(s): N52.9 - Male erectile dysfunction, unspecified Category: Medical Qualifiers: Erectile dysfunction type: unspecified Qualified Code(s): N52.9 - Male erectile dysfunction, unspecified (2) Prostate cancer: Comment: Low volume grade group 3 Code(s): C61 - Malignant neoplasm of prostate Category: Medical Plan Four month follow-up office PSA Orders: Orders PSA,Total (Free>4and<10) 4 Months C61 - Malignant neoplasm of prostate Patient Instructions: This note is constructed using voice recognition software. While every effort has been made to ensure accuracy tester compressed gases errors may have been included. Imaging studies, laboratory and physical exam results were discussed and reviewed in detail. No major barriers to patient understanding were identified. An opportunity to ask questions regarding the treatment plan was provided. All questions were answered. The patient expressed understanding and agreement with the above treatment plan. The patient is aware they should contact our office by phone for worsening of their current condition or the appearance of new urologic symptoms. Compliance is encouraged with any medications and followup testing that is ordered. It is a privilege to participate in the urologic care of your patient. If you have any questions or concerns regarding treatment for the above conditions, or other urologic issues, please do not hesitate to contact me. The office telephone contact is [phone]. Sincerely, Dr Orestes Jensen MD, [facility] - Urology Compassionate Specialist Care for the Genitourinary System Coding Level of Care Code Tele Est Pt Level 3 (26945) Complex EM visit Add On [id number] Diagnoses Erectile dysfunction, unspecified erectile dysfunction type N52.9 Erectile dysfunction type: unspecified Prostate cancer C61
== END 2024-11-05 09:20 | disposition home or self-care (01) ==
LOC: HO.HUSH 08:33
PROVIDERS: PCP Internal Medicine; Visit Provider Urology
DX: N52.9 Male erectile dysfunction, unspecified (principal); C61 Malignant neoplasm of prostate
CPT/HCPCS: 99213; G2211

== ENCOUNTER 2024-11-27 09:39 | Outpatient (AMB) | payer MEDICARE, SELFPAY ==
--- NOTE | 2024-11-27 09:46 | MHC.PC.OV ---
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 Accompanied by: Self / Same As Patient Allergies vaccine adjuvant system, AS01B lipo [From Shingrix (PF)] Adverse Reaction (Intermediate, Verified 11/27/24 10:10) joint pains; muscle weakness varicella-zoster virus glycoprotein [From Shingrix (PF)] Adverse Reaction (Intermediate, Verified 11/27/24 10:10) joint pains; muscle weakness Medication List - Last Reconciled 11/27/24 by Zechariah Alfaro MD antiarthritic combination no.2 (glucosamine-chondroitin) 1 tablet PO 2 times a day; ascorbic acid (vitamin C) 500 mg PO DAILY [Boswellia 250 mg PO DAILY] calcium carb-mag ox-zinc sulf 333-133-5 mg 1 tab PO DAILY ferrous sulfate (Feosol) 325 mg PO .weekly finasteride 5 mg PO DAILY 90 days [[place] Biloba 120 mg PO DAILY] ginseng 500 mg PO DAILY ibuprofen 600 mg PO Q6H PRN omega 8-ths-ksk-fish oil 360-1,200 mg (Fish Oil) 1 cap PO TID saw palmetto 450 mg PO DAILY [[employer] 1 tablet daily; ] sildenafil 50 mg PO DAILY PRN 30 days turmeric 800 mg PO DAILY Tobacco use date assessed: 11/27/24 Fall risk assessment: No Falls in past year Last assessed Fall Risk: 11/27/24 Dental Screening Dental Screen Date: 11/27/24 Did you have a dental visit in the last 12 months?: No Did you have a dental problem in the last 6 months where you did not have access to dental care?: No Was dental information given to patient?: Patient has dentist HPI 6mth f/u HPI Details Patient comes in today for his follow up visit States that he feels okay He had a pelvic MRI done back in July 2024 that revealed some findings that was suspicious for prostate cancer but patient reports that he was moving around some heavy furnitures the night before his procedure and realized that heavy physical activity can affect the accuracy of the MRI scan States that he has been following up closely with Dr. Jensen for this over the past few months and Dr. Jensen currently has him under close surveillance for now Patient denies any headaches or dizziness Denies any chest pains, no SOB No nausea/vomiting, no abdominal pain No change in bowel habits noted [facility] Medical History Pure hypercholesterolemia Sessile colonic polyp Elevated prostate specific antigen [PSA] Elevated blood pressure reading Arthritis, multiple joint involvement Surgical History Hx of bilateral cataract extraction History of right inguinal hernia repair (~01/27/22) Hx of colonoscopy History of appendectomy Family History Mother Cancer Father Heart attack Social History Housing: House Are you a primary care transitions manager to a significant other at home: No Do you presently have visiting nurse or other home services: No Alcohol intake: current Alcohol intake frequency: a few times a month Patient Tobacco Use Status: Never used Tobacco e-Cigarette/Vaping Use: Never Used Second Hand Smoke Exposure: Yes service: No Current occupational status: employed and unemployed Cognitive needs: No Hearing needs: No Vision needs: Yes Questionnaire PHQ-9 Over the last 2 weeks, how often have you been bothered by any of the following problems? 1. Little interest or pleasure in doing things: not at all 2. Feeling down, depressed, or hopeless: not at all 3. Trouble falling or staying asleep, or sleeping too much: not at all 4. Feeling tired or having little energy: not at all 5. Poor appetite or overeating: not at all 6. Feeling bad about yourself - or that you are a failure or have let yourself or your family down: not at all 7. Trouble concentrating on things, such as reading the newspaper or watching television: not at all 8. Moving or speaking so slowly that other people could have noticed. Or the opposite - being so fidgety or restless that you have been moving around a lot more than usual: not at all 9. Thoughts that you would be better off or of hurting yourself in some way: not at all Total score: 0 Depression Screening Interpretation: Negative Depression Screening Done: Yes 78953 - PHQ-9 Billing: Yes Source: Developed by Drs. Sanjay Tanner, Opal Mi, Joseph Rankin and colleagues, with an educational dea from [employer]. Thrive Questionnaire Date Thrive assessed: 11/27/24 I am a: Patient What is your living situation today?: I have a steady place to live Within the past 12 months, did the food you bought not last and you didn't have the money to get more?: Never true Within the past 12 months, did you worry whether your food would run out before you got money to buy more?: Never true Do you have trouble paying for medicines?: No Do you have trouble getting transportation to medical appointments?: No Do you have trouble paying your heating and electricity bill?: No Do you have trouble taking care of your child, family member or friend?: No Do you have trouble with day-to-day activities such as bathing, preparing meals, shopping, managing finances, etc.?: No Are you currently unemployed and looking for a job?: No Are you interested in more education?: No Please select the resources that you would like help with: None Currently or been in a relationship where the following occur: No concerns reported THRIVE Score: 0 AUDIT C Alcohol Use Questionnaire (AUDIT-C) 1. How often do you have a drink containing alcohol?: Monthly or less 2. How many drinks containing alcohol do you have on a typical day when you are drinking?: 1 or 2 3. How often do you have six or more drinks on one occasion?: Never Total Score: 1 Score Reviewed/Action Taken: Yes MORTEZA-7 AMB Questionnaire MORTEZA-7 Date MORTEZA - 7 assessed: 11/27/24 Feeling nervous, anxious, or on edge: 0 = Not at all Not being able to stop or control worryin = Not at all Worrying too much about different things: 0 = Not at all Trouble relaxin = Not at all Being so restless that it is hard to sit still: 0 = Not at all Becoming easily annoyed or irritable: 0 = Not at all Feeling afraid as if something awful might happen: 0 = Not at all Total MORTEZA-7 score (0-4 normal; 5-9 mild; 10-14 moderate; 15-21 severe): 0 Source: Developed by Drs. Sanjay Tanner, Opal Mi, Joseph Rankin and colleagues, with an educational dea from [employer]. Review of Systems Const Denies chills, Denies fatigue, Denies fever(s) and Denies headache(s) ENT Denies dysphagia, Denies dizziness, Denies otalgia, Denies headache(s), Denies neck pain, Denies odynophagia and Denies sore throat Card Denies chest pain, Denies irregular heart rhythm, Denies palpitations and Denies dyspnea Resp Denies chest congestion, Denies cough and Denies dyspnea GI Denies abdominal pain, Denies constipation, Denies dysphagia, Denies heartburn, Denies diarrhea, Denies nausea, Denies odynophagia and Denies vomiting Denies difficulty urinating, Denies dysuria and Denies urinary frequency Musc Denies back pain, Reports arthralgias (on and off but are mostly controlled/manageable) and Denies neck pain Skin/Breast Denies rash Neuro Denies dizziness, Denies headache(s) and Denies paresthesias Endo Denies fatigue and Denies palpitations Physical exam (Primary Care) Vital Signs: Last Vital Signs Pulse 68 11/27/24 09:47 BP 146/82 H 11/27/24 09:47 Pulse Ox 99 11/27/24 09:47 Oxygen Delivery Method Room Air 11/27/24 09:47 BMI result Body Mass Index 24.0 Tobacco/Smoking Status: Tobacco use Status Tobacco use date assessed 11/27/24 11/27/24 09:52 Patient Tobacco Use Status Never used Tobacco 11/27/24 09:52 e-Cigarette/Vaping Use Never Used 11/27/24 09:52 PHQ-9: PHQ-9 Score PHQ-9: Total score 0 11/27/24 09:52 Depression Screening Interpretation: Negative Thrive Assessment: Date of Thrive Assessment Date Thrive assessed 11/27/24 11/27/24 09:52 Currently or been in a relationship where the following occur: No concerns reported Const General: no acute distress and alert HENMT Ears: TM's normal bilaterally and EAC's normal Throat: Yes posterior oropharynx normal and Yes tonsils normal (no TP congestion) Neck Other: (+) palpable nodule on the right side of the neck under the right mandible Neck: Yes no lymphadenopathy and Yes supple Thyroid: Thyroid normal Resp Auscultation: clear to auscultation bilaterally, no rales and no wheezes Cardio Rate: regular rate Rhythm: regular rhythm Heart sounds: no murmurs GI Palpation (GI): Soft to palpation and nontender Auscultation: normal bowel sounds General: Yes no CVA tenderness Back/Spine/Pelvis Back: no CVA tenderness Thoracic/Lumbar Spine: thoracic and lumbar spine normal to inspection Skin Rashes: no rashes Extrem General: Yes no clubbing, cyanosis or edema Coding Level of Care Code Est Pt Level 4 (85592) Diagnoses Elevated blood pressure reading R03.0 Arthritis, multiple joint involvement M12.9 Prostate cancer C61 Nodule of neck R22.1 Pure hypercholesterolemia E78.00 Erectile dysfunction, unspecified erectile dysfunction type N52.9 Erectile dysfunction type: unspecified Additional Codes PHQ-9 - 34691 - PHQ-9 Billing: Yes ([id number]) Assessment & Plan Assessment & Plan (1) Elevated blood pressure reading: Code(s): R03.0 - Elevated blood-pressure reading, without diagnosis of hypertension Category: Medical Plan: Reinforced low sodium diet Patient states that his BP is usually consistent and mostly lower when he checks it at home He is advised to continue monitoring his blood pressure regularly - systolic BP should ideally be at least at 130 to 140 mm or less (2) Arthritis, multiple joint involvement: Code(s): M12.9 - Arthropathy, unspecified Category: Medical Plan: Continue current OTC supplements (see med list), which he feels are helping with majority of his symptoms Patient is again encouraged to continue to stay active and exercise regularly to help manage his joint pains He takes Ibuprofen 600 mg PRN for pain with adequate pain relief and does not wish to try anything else different at this time (3) Prostate cancer: Comment: Low volume grade group 3 Code(s): C61 - Malignant neoplasm of prostate Category: Medical Plan: His prostate Bx last year came back positive for adenocarcinoma Pelvic MRI done back in July 2024 that revealed findings suspicious for prostate cancer - was advised by urology that this was organ-confined Continue Finasteride 5 mg QD Follow up with urology as scheduled for continuing surveillance (4) Nodule of neck: Code(s): R22.1 - Localized swelling, mass and lump, neck Category: Medical Plan: Have reassured patient that the soft tissue US of the neck that he had done a few months ago came out okay and do not appear to have any concerning findings The lump on his neck came out corresponding to the left submandibular gland US report states that the area of concern indicated by patient appears to correspond with the left submandibular gland. Bilateral submandibular glands appear hypervascular, left slightly greater than right. Left submandibular gland appears slightly larger than the right (5) Pure hypercholesterolemia: Code(s): E78.00 - Pure hypercholesterolemia, unspecified Category: Medical Plan: He is advised that his LDL cholesterol level has improved significantly from previous on his previous labs and it was down to 101 mg/dl from 132 mg/dl previously Reinforced low cholesterol diet Will recheck his labs and fasting lipids in 6 months for follow up (6) Erectile dysfunction: Code(s): N52.9 - Male erectile dysfunction, unspecified Category: Medical Qualifiers: Erectile dysfunction type: unspecified Qualified Code(s): N52.9 - Male erectile dysfunction, unspecified Plan: Continue Sildenafil 50 mg PRN Plan To return in 6 months for his next annual physical examination Orders: Orders Complete Blood Count Auto Diff 6 Months D64.9 - Anemia, unspecified, Z00.00 - Encounter for general adult medical examination without abnormal findings Comprehensive [place]. Panel Fast 6 Months E78.00 - Pure hypercholesterolemia, unspecified, Z00.00 - Encounter for general adult medical examination without abnormal findings Lipid Panel 6 Months E78.00 - Pure hypercholesterolemia, unspecified, Z00.00 - Encounter for general adult medical examination without abnormal findings TSH reflex Free T4 6 Months E78.00 - Pure hypercholesterolemia, unspecified, Z00.00 - Encounter for general adult medical examination without abnormal findings UA CC w/rflx Micro + Cult 6 Months R30.0 - Dysuria, Z00.00 - Encounter for general adult medical examination without abnormal findings Vitamin D 25-OH Total 6 Months E55.9 - Vitamin D deficiency, unspecified, Z00.00 - Encounter for general adult medical examination without abnormal findings Vitamin B12 and Folate 6 Months E53.8 - Deficiency of other specified B group vitamins, Z00.00 - Encounter for general adult medical examination without abnormal findings
[2024-11-27 09:47] VITALS: BP 146/82; PULSE 68; O2SAT 99; BMI 24.0
== END 2024-11-27 10:19 | disposition home or self-care (01) ==
LOC: HO.HMCH 09:40
PROVIDERS: PCP Internal Medicine; Visit Provider Internal Medicine
DX: R03.0 Elevated blood-pressure reading, without diagnosis of hypertension (principal); M12.9 Arthropathy, unspecified; C61 Malignant neoplasm of prostate; R22.1 Localized swelling, mass and lump, neck; E78.00 Pure hypercholesterolemia, unspecified; N52.9 Male erectile dysfunction, unspecified

== ENCOUNTER → 2024-11-27 09:39 | Outpatient (BNVA) | payer MEDICARE, SELFPAY | PROVIDERS: PCP Internal Medicine; Visit Provider Internal Medicine | DX: R03.0 Elevated blood-pressure reading, without diagnosis of hypertension (principal); M12.9 Arthropathy, unspecified; C61 Malignant neoplasm of prostate; R22.1 Localized swelling, mass and lump, neck; E78.00 Pure hypercholesterolemia, unspecified; N52.9 Male erectile dysfunction, unspecified | CPT/HCPCS: 96127; 99212 ==

== ENCOUNTER 2025-02-26 07:44 | Outpatient (REF) | payer MEDICARE, SELFPAY ==
[2025-02-26 09:07] LABS: PSA,Total (Free>4and<10) 11.21 ng/mL (0.00-4.00)
== END 2025-02-26 07:45 | disposition home or self-care (01) ==
LOC: HO.LAB 07:44
PROVIDERS: PCP Internal Medicine; Visit Provider Urology
DX: Z12.5 Encounter for screening for malignant neoplasm of prostate (principal); C61 Malignant neoplasm of prostate
CPT/HCPCS: 36415; 84153

== ENCOUNTER 2025-03-06 09:08 | Outpatient (AMB) | payer MEDICARE, SELFPAY ==
--- NOTE | 2025-03-06 09:27 | A.OFFVIS_ITS ---
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 He is seen for the following urologic conditions - elevated PSA - erectile dysfunction PSA jump Had been alternating each month with finasteride PSA 10/21 5.7 on finasteride, 02/20 PSA 11 Daily finasteride Four month follow-up PSA tele Prostate cancer - April 2024 grade group 3, ultra low volume Initial PSA 5.3 Volume 40 cc PT1c 05/22 Cameron score: 4+3=7 - Grade group: 3 Number cores positive: 1 Total number of cores: 12 - LBL 50% % of tissue involved: 5% of all tissue examined Periprostatic fat inv.: Not identified Seminal vesicle inv.: Not identified Perineural inv.: Present LVI: Not identified Staging MRI 06/22 volume 30 g, 8 mm PI-RADS 4 left posterolateral peripheral zone with abutment Prolaris - borderline surveillance vs intervention CCS - low 3.2 Ten year mortality risk 4.1 %, threshold is 3.2% Elevated PSA Marginal PSA for age PSA 05/19 4.9, 08/21 6.3 19%, 02/18 3.5 +F, 08/22 4.3, 03/22 5.3 11% Minimal lower urinary tract symptoms KARELY 2+ on exam No nodules Erectile dysfunction Responsive to sildenafil PFSH Medical History Pure hypercholesterolemia Sessile colonic polyp Elevated prostate specific antigen [PSA] Elevated blood pressure reading Arthritis, multiple joint involvement Surgical History Hx of bilateral cataract extraction History of right inguinal hernia repair (~07/01/22) Hx of colonoscopy History of appendectomy Family History Mother Cancer Father Heart attack Social History Housing: House Are you a primary child care nurse to a significant other at home: No Do you presently have visiting nurse or other home services: No Alcohol intake: current Alcohol intake frequency: a few times a month Patient Tobacco Use Status: Never used Tobacco e-Cigarette/Vaping Use: Never Used Second Hand Smoke Exposure: Yes service: No Current occupational status: employed and unemployed Cognitive needs: No Hearing needs: No Vision needs: Yes Review of Systems Const Denies chills and Denies fever(s) Card Reports no additional complaints and Denies syncope Resp Denies cough GI Denies abdominal pain and Denies heartburn Reports as per HPI and Denies change in libido Neuro Denies syncope Psych Denies change in libido Endo Denies change in libido Physical Exam Const General: cooperative, healthy appearing, comfortable and no acute distress Orientation/consciousness: patient oriented x3 HEENT Face and sinus: Yes normal facial exam Mouth: moist mucous membranes Neck Neck: Yes normal visual inspection, Yes full ROM and Yes trachea midline Chest Chest palpation & inspection: normal inspection of the chest Resp Effort & Inspection: normal respiratory effort, able to speak in complete sentences and no respiratory distress GI Inspection: Yes normal to inspection Back/Spine/Pelvis Cervical Spine: normal cervical lordosis Thoracic/Lumbar Spine: thoracic and lumbar spine normal to inspection Skin General skin exam: no rashes or lesions noted Neuro General: patient oriented x3, gait normal, tone normal and moves all extremities Extrem General: Yes normal to inspection and Yes capillary refill normal Assessment & Plan Assessment & Plan (1) Prostate cancer: Comment: Low volume grade group 3 Code(s): C61 - Malignant neoplasm of prostate Category: Medical Plan Days finasteride 4 month follow-up PSA Orders: Orders PSA,Total (Free>4and<10) 4 Months C61 - Malignant neoplasm of prostate Medications: Refilled finasteride 5 mg PO DAILY 90 tabs 1RF 90 days R97.20 - Elevated prostate specific antigen [PSA] Patient Instructions: This note is constructed using voice recognition software. While every effort has been made to ensure accuracy svp digital sales food & cooking errors may have been included. Imaging studies, laboratory and physical exam results were discussed and reviewed in detail. No major barriers to patient understanding were identified. An opportunity to ask questions regarding the treatment plan was provided. All questions were answered. The patient expressed understanding and agreement with the above treatment plan. The patient is aware they should contact our office by phone for worsening of their current condition or the appearance of new urologic symptoms. Compliance is encouraged with any medications and followup testing that is ordered. It is a privilege to participate in the urologic care of your patient. If you have any questions or concerns regarding treatment for the above conditions, or other urologic issues, please do not hesitate to contact me. The office telephone contact is [phone]. Sincerely, Dr Orestes Jensen MD, [facility] - Urology Compassionate Specialist Care for the Genitourinary System Coding Level of Care Code Est Pt Level 4 (76766) Complex EM visit Add On G2211 Diagnoses Prostate cancer C61
== END 2025-03-06 10:01 | disposition home or self-care (01) ==
LOC: HO.HUSH 09:09
PROVIDERS: PCP Internal Medicine; Visit Provider Urology
DX: C61 Malignant neoplasm of prostate (principal)
CPT/HCPCS: 99214; G2211

== ENCOUNTER → 2025-03-06 09:08 | Outpatient (BNVA) | payer MEDICARE, SELFPAY | PROVIDERS: PCP Internal Medicine; Visit Provider Urology | DX: R97.20 Elevated prostate specific antigen [PSA] (principal); C61 Malignant neoplasm of prostate | CPT/HCPCS: 99212 ==

== ENCOUNTER 2025-06-08 07:00 | Outpatient (REF) | payer MEDICARE, SELFPAY ==
[2025-06-08 07:09] LABS: MANUAL DIFF FLAG NO
[2025-06-08 07:58] LABS: Hematocrit 42.7 % (42.0-52.0); Hemoglobin 13.8 g/dl (14.0-18.0); Imm Gran Abs Auto 0.01 X10*3/uL (0.00-0.03); Imm Gran Pct Auto 0.2 % (0.0-0.4); Lymphocytes Absolute Auto 1.1 X10*3/uL (1.2-4.9); Mean Corpuscular HGB Conc 32.3 g/dl (31.0-36.0); Mean Corpuscular Hemoglobin 30.5 pg (27.0-33.0); Mean Corpuscular Volume 94.3 fL (80.0-98.0); NRBC Abs Auto 0.000 X10*3/uL (0.0-0.012); NRBC Pct Auto 0.0 /100WBC (0.0-0.2); Platelet Count 255 X10*3/uL (160-400); Red Blood Count 4.53 X10*6/uL (4.60-5.80); White Blood Count 4.2 X10*3/uL (4.8-10.8)
[2025-06-08 07:59] LABS: Appearance Urine Turbid; Glucose Urine UA Negative (Negative); PH >= 9.0 (5.0-9.0); Specific Gravity - Urine 1.015 (1.005-1.025)
[2025-06-08 08:26] LABS: Alanine Aminotransferase 30 U/L (0-40); Albumin Level 4.6 g/dL (3.5-5.0); Alkaline Phosphatase 123 U/L (39-117); Anion Gap 11 (12-20); Aspartate Amino Transferase 37 U/L (5-37); Blood Urea Nitrogen 19 mg/dL (9-16); Calcium 9.9 mg/dL (8.4-10.2); Carbon Dioxide 30 mmol/L (22-29); Chloride 106 mmol/L (96-108); Cholesterol 204 mg/dL (<200); Estimated Glomerular Filt Rate > 60; HDL Cholesterol 85 mg/dL (>40); Potassium 4.2 mmol/L (3.3-5.1); Sodium 143 mmol/L (135-145); Total Protein 7.4 g/dL (6.5-8.0); Triglycerides 51 mg/dL (<150)
[2025-06-08 08:51] LABS: Folate 14.0 ng/mL (> or = 4.0); Vitamin B12 1064 pg/mL (200-900)
== END 2025-06-08 07:01 | disposition home or self-care (01) ==
LOC: HO.LAB 07:00
PROVIDERS: PCP Internal Medicine; Visit Provider Internal Medicine
DX: Z00.00 Encounter for general adult medical examination without abnormal findings (principal); E53.8 Deficiency of other specified B group vitamins; R30.0 Dysuria; E78.00 Pure hypercholesterolemia, unspecified; E55.9 Vitamin D deficiency, unspecified; D64.9 Anemia, unspecified
CPT/HCPCS: 36415; 80053; 80061; 81003; 82306; 82607; 82746; 84443; 85025

== ENCOUNTER 2025-06-15 08:55 | Outpatient (AMB) | payer MEDICARE, SELFPAY ==
[2025-06-15 08:57] VITALS: BP 130/82; PULSE 55; O2SAT 92; BMI 23.9
--- NOTE | 2025-06-15 08:57 | A.OFFPC_ITS ---
Vital Signs 06/15/25 08:57 Height 5 ft 10 in Weight 166 lb 4 oz BMI 23.9 BP 130/82 Blood Pressure Location Lt brachial Position Sitting Pulse 55 Pulse Source Pulse Oximeter Pulse Oximetry (%) 92 Oxygen Delivery Method Room Air Intake Visit Reasons: pe Digital Project Coordinator Required: No Accompanied by: Self / Same As Patient Allergies vaccine adjuvant system, AS01B lipo (From Shingrix (PF)) Adverse Reaction (Intermediate, Verified 06/15/25 09:19) joint pains; muscle weakness varicella-zoster virus glycoprotein (From Shingrix (PF)) Adverse Reaction (Intermediate, Verified 06/15/25 09:19) joint pains; muscle weakness Medication List - Last Reconciled 06/15/25 by Zechariah Alfaro MD antiarthritic combination no.2 (glucosamine-chondroitin) 1 tablet PO 2 times a day; ascorbic acid (vitamin C) 500 mg PO DAILY [Boswellia 250 mg PO DAILY] calcium carb-mag ox-zinc sulf 333-133-5 mg 1 tab PO DAILY ferrous sulfate (Feosol) 325 mg PO .weekly finasteride 5 mg PO DAILY 90 days [Gingko Biloba 120 mg PO DAILY] ginseng 500 mg PO DAILY ibuprofen 600 mg PO Q6H PRN omega 0-vbk-sjy-fish oil 360-1,200 mg (Fish Oil) 1 cap PO TID saw palmetto 450 mg PO DAILY [Sen[employer] Vision 1 tablet daily; ] turmeric 800 mg PO DAILY Tobacco use date assessed: 06/15/25 Fall risk assessment: No Falls in past year Last assessed Fall Risk: 06/15/25 Dental Screening Dental Screen Date: 06/15/25 HPI pe HPI Details Patient comes in today for his annual physical examination States that he feels okay He denies any headaches or dizziness Denies any chest pains, no SOB No nausea/vomiting, no abdominal pain No change in bowel habits noted Denies any acute urinary symptoms He had his follow up labs done last week - to discuss his results Patient had his screening colonoscopy last done with Dr. Li in December 2021 and was recommended to have repeat colonoscopy in 5 years (2026) if health permits [facility] Medical History Pure hypercholesterolemia Sessile colonic polyp Elevated prostate specific antigen [PSA] Elevated blood pressure reading Arthritis, multiple joint involvement Surgical History Hx of bilateral cataract extraction History of right inguinal hernia repair (~01/27/22) Hx of colonoscopy History of appendectomy Family History Mother Cancer Father Heart attack Social History Housing: House Are you a primary home child care provider to a significant other at home: No Do you presently have visiting nurse or other home services: No Alcohol intake: current Alcohol intake frequency: a few times a month Patient Tobacco Use Status: Never used Tobacco e-Cigarette/Vaping Use: Never Used Second Hand Smoke Exposure: Yes service: No Current occupational status: employed and unemployed Cognitive needs: No Hearing needs: No Vision needs: Yes Questionnaire PHQ-9 Over the last 2 weeks, how often have you been bothered by any of the following problems? 1. Little interest or pleasure in doing things: not at all 2. Feeling down, depressed, or hopeless: not at all 3. Trouble falling or staying asleep, or sleeping too much: not at all 4. Feeling tired or having little energy: not at all 5. Poor appetite or overeating: not at all 6. Feeling bad about yourself - or that you are a failure or have let yourself or your family down: not at all 7. Trouble concentrating on things, such as reading the newspaper or watching television: not at all 8. Moving or speaking so slowly that other people could have noticed. Or the opposite - being so fidgety or restless that you have been moving around a lot more than usual: not at all 9. Thoughts that you would be better off or of hurting yourself in some way: not at all Total score: 0 Depression Screening Interpretation: Negative Depression Screening Done: Yes 84483 - PHQ-9 Billing: Yes Source: Developed by Drs. Sanjay Tanner, Opal Mi, Joseph Rankin and colleagues, with an educational dea from [employer]. Thrive Questionnaire Date Thrive assessed: 06/15/25 I am a: Patient What is your living situation today?: I have a steady place to live Within the past 12 months, did the food you bought not last and you didn't have the money to get more?: Never true Within the past 12 months, did you worry whether your food would run out before you got money to buy more?: Never true Do you have trouble paying for medicines?: No Do you have trouble getting transportation to medical appointments?: No Do you have trouble paying your heating and electricity bill?: No Do you have trouble taking care of your child, family member or friend?: No Do you have trouble with day-to-day activities such as bathing, preparing meals, shopping, managing finances, etc.?: No Are you currently unemployed and looking for a job?: No Are you interested in more education?: No Please select the resources that you would like help with: None Currently or been in a relationship where the following occur: No concerns reported THRIVE Score: 0 AUDIT C Alcohol Use Questionnaire (AUDIT-C) 1. How often do you have a drink containing alcohol?: Monthly or less 2. How many drinks containing alcohol do you have on a typical day when you are drinking?: 1 or 2 3. How often do you have six or more drinks on one occasion?: Never Total Score: 1 Score Reviewed/Action Taken: Yes MORTEZA-7 AMB Questionnaire MORTEZA-7 Date MORTEZA - 7 assessed: 06/15/25 Feeling nervous, anxious, or on edge: 0 = Not at all Not being able to stop or control worryin = Not at all Worrying too much about different things: 0 = Not at all Trouble relaxin = Not at all Being so restless that it is hard to sit still: 0 = Not at all Becoming easily annoyed or irritable: 0 = Not at all Feeling afraid as if something awful might happen: 0 = Not at all Total MORTEZA-7 score (0-4 normal; 5-9 mild; 10-14 moderate; 15-21 severe): 0 Source: Developed by Drs. Sanjay Tanner, Opal Mi, Joseph Rankin and colleagues, with an educational dea from [employer]. Review of Systems Const Denies chills, Denies fatigue, Denies fever(s), Denies headache(s), Denies malaise and Denies weakness Eyes Denies blurry vision, Denies change in vision, Denies irritation and Denies itchy eyes ENT Denies dysphagia, Denies dizziness, Denies otalgia, Denies headache(s), Denies nasal congestion, Denies neck pain, Denies odynophagia and Denies sore throat Card Denies rapid heart rate, Denies irregular heart rhythm, Denies palpitations and Denies dyspnea Resp Denies chest congestion, Denies cough, Denies dyspnea and Denies wheezing GI Denies abdominal pain, Denies bloating, Denies constipation, Denies dysphagia, Denies heartburn, Denies diarrhea, Denies nausea, Denies odynophagia and Denies vomiting Denies hematuria, Denies difficulty urinating, Denies dysuria, Denies urinary frequency and Denies urinary urgency Musc Denies back pain, Denies arthralgias, Denies joint swelling, Denies muscle weakness and Denies neck pain Skin/Breast Denies change in pigmentation, Denies lesions, Denies rash and Denies unusual bruising Neuro Denies dizziness, Denies headache(s), Denies paresthesias and Denies weakness Endo Denies fatigue and Denies palpitations Aller/Immun Denies itchy eyes and Denies wheezing Physical exam (Primary Care) Vital Signs: Last Vital Signs Pulse 55 06/15/25 08:57 BP 130/82 06/15/25 08:57 Pulse Ox 92 06/15/25 08:57 Oxygen Delivery Method Room Air 06/15/25 08:57 BMI result Body Mass Index 23.9 Tobacco/Smoking Status: Tobacco use Status Tobacco use date assessed 06/15/25 06/15/25 09:03 Patient Tobacco Use Status Never used Tobacco 06/15/25 09:03 e-Cigarette/Vaping Use Never Used 06/15/25 09:03 PHQ-9: PHQ-9 Score PHQ-9: Total score 0 06/15/25 09:03 Depression Screening Interpretation: Negative Thrive Assessment: Date of Thrive Assessment Date Thrive assessed 06/15/25 06/15/25 09:03 Currently or been in a relationship where the following occur: No concerns reported Const General: no acute distress, alert and awake Orientation/consciousness: patient oriented x3 HENMT Head: Yes normocephalic and Yes atraumatic Ears: external ears normal, TM's normal bilaterally and EAC's normal General nose exam: No nasal discharge present Face and sinus: Yes normal facial exam and Yes sinuses nontender Teeth and gingiva: dentition normal Throat: Yes posterior oropharynx normal and Yes tonsils normal (no TP congestion) Eyes Eyelids: Yes eyelids normal Conjunctivae: conjunctivae normal Pupils: Equal, round and reactive pupils present EOM: EOMs intact bilaterally Neck Neck: Yes no lymphadenopathy and Yes supple Thyroid: Thyroid normal Resp Auscultation: clear to auscultation bilaterally, no rales and no wheezes Cardio Rate: regular rate Rhythm: regular rhythm Heart sounds: no murmurs GI Palpation (GI): Soft to palpation, nontender and No hepatosplenomegaly present Auscultation: normal bowel sounds General: Yes no CVA tenderness Back/Spine/Pelvis Back: no CVA tenderness Thoracic/Lumbar Spine: thoracic and lumbar spine normal to inspection Skin Lesions: no lesions Rashes: no rashes Neuro General: patient oriented x3, moves all extremities, no focal motor deficits and CN's II-XI intact bilaterally Cranial nerves: Yes Equal, round and reactive pupils present Cognition (Neuro): normal cognition Gait exam (Neuro): Normal gait present Extrem General: Yes no clubbing, cyanosis or edema Results Reviewed Results Reviewed: Laboratory Tests 06/08/25 06/08/25 07:04 07:08 WBC 4.2 L Hgb 13.8 L Hct 42.7 Plt Count 255 Sodium 143 Potassium 4.2 Creatinine 1.00 Estimated GFR > 60 Fasting Glucose 87 Calcium 9.9 AST 37 ALT 30 Triglycerides 51 Cholesterol 204 H LDL Cholesterol, Calc 109 H HDL Cholesterol 85 Vitamin B12 1064 H 25-OH Vitamin D Total 95.8 TSH 1.79 Ur Specific [place] 1.015 Urine Protein Negative Urine Glucose (UA) Negative Urine Blood Negative Urine Nitrite Negative Ur Leukocyte Esterase Negative Coding Level of Care Code Est Pt Prev Care >65y(54973) Diagnoses Annual physical exam Z00.00 Elevated blood pressure reading R03.0 Arthritis, multiple joint involvement M12.9 Prostate cancer C61 Pure hypercholesterolemia E78.00 Erectile dysfunction, unspecified erectile dysfunction type N52.9 Erectile dysfunction type: unspecified Additional Codes PHQ-9 - 09849 - PHQ-9 Billing: Yes ([id number]) Assessment & Plan Assessment & Plan (1) Annual physical exam: Code(s): Z00.00 - Encounter for general adult medical examination without abnormal findings Category: Medical Plan: Results of his labs done last week reviewed and discussed with patient Patient is advised that his Vitamin B12 and Vitamin D levels are both higher than recommended and he should look into odell of the supplements and vitamins that he is currently taking to make sure he is not taking too much of these He had his screening colonoscopy last done with Dr. Li in December 2021 and was recommended to have repeat colonoscopy in 5 years (2026) if health permits (2) Elevated blood pressure reading: Code(s): R03.0 - Elevated blood-pressure reading, without diagnosis of hypertension Category: Medical Plan: Reinforced low sodium diet Patient states that his BP is usually consistent and mostly lower when he checks it at home - his blood pressure is a lot better today compared to his last visit's He is advised to continue monitoring his blood pressure regularly - systolic BP should ideally be at least at 130 to 140 mm or less (3) Arthritis, multiple joint involvement: Code(s): M12.9 - Arthropathy, unspecified Category: Medical Plan: Continue current OTC supplements (see med list), which he feels are helping with majority of his symptoms Patient is again encouraged to continue to stay active and exercise regularly to help manage his joint pains He takes Ibuprofen 600 mg PRN for pain with adequate pain relief and does not wish to try anything else different as what he is currently on are helping adequately (4) Prostate cancer: Comment: Low volume grade group 3 Code(s): C61 - Malignant neoplasm of prostate Category: Medical Plan: His prostate Bx last year came back positive for adenocarcinoma Pelvic MRI done back in July 2024 that revealed findings suspicious for prostate cancer - was advised by urology that this was organ-confined Continue Finasteride 5 mg QD Follow up with urology as scheduled for continuing surveillance (5) Pure hypercholesterolemia: Code(s): E78.00 - Pure hypercholesterolemia, unspecified Category: Medical Plan: Patient is advised that his LDL cholesterol level increased significantly from previous on his recent labs Reinforced low cholesterol diet Will recheck his labs and fasting lipids in 6 months for follow up (6) Erectile dysfunction: Code(s): N52.9 - Male erectile dysfunction, unspecified Category: Medical Qualifiers: Erectile dysfunction type: unspecified Qualified Code(s): N52.9 - Male erectile dysfunction, unspecified Plan: Continue Sildenafil 50 mg PRN Plan Follow up in 6 months Orders: Orders Comprehensive Jean. Panel Fast 6 Months E78.00 - Pure hypercholesterolemia, unspecified Vitamin B12 and Folate 6 Months E53.8 - Deficiency of other specified B group vitamins Vitamin D 25-OH Total 6 Months E55.9 - Vitamin D deficiency, unspecified Complete Blood Count Auto Diff 6 Months D64.9 - Anemia, unspecified Lipid Panel 6 Months E78.00 - Pure hypercholesterolemia, unspecified UA CC w/rflx Micro + Cult 6 Months R30.0 - Dysuria
== END 2025-06-15 09:31 | disposition home or self-care (01) ==
LOC: HO.HMCH 08:56
PROVIDERS: PCP Internal Medicine; Visit Provider Internal Medicine
DX: Z00.00 Encounter for general adult medical examination without abnormal findings (principal); R03.0 Elevated blood-pressure reading, without diagnosis of hypertension; M12.9 Arthropathy, unspecified; C61 Malignant neoplasm of prostate; E78.00 Pure hypercholesterolemia, unspecified; N52.9 Male erectile dysfunction, unspecified

== ENCOUNTER → 2025-06-15 08:55 | Outpatient (BNVA) | payer MEDICARE, SELFPAY | PROVIDERS: PCP Internal Medicine; Visit Provider Internal Medicine | DX: Z00.00 Encounter for general adult medical examination without abnormal findings (principal); R03.0 Elevated blood-pressure reading, without diagnosis of hypertension; M12.9 Arthropathy, unspecified; C61 Malignant neoplasm of prostate; E78.00 Pure hypercholesterolemia, unspecified; N52.9 Male erectile dysfunction, unspecified; E53.8 Deficiency of other specified B group vitamins; E55.9 Vitamin D deficiency, unspecified; D64.9 Anemia, unspecified; R30.0 Dysuria | CPT/HCPCS: 96127; 99397 ==

== ENCOUNTER 2025-06-29 07:06 | Outpatient (REF) | payer MEDICARE, SELFPAY ==
[2025-06-29 09:04] LABS: PSA,Total (Free>4and<10) 4.99 ng/mL (0.00-4.00)
[2025-07-01 12:13] LABS: Free Prostate Spec Ag 0.8 ng/mL; Percent Free Prostate Spec Ag 13 % (calc) (>25)
== END 2025-06-29 07:07 | disposition home or self-care (01) ==
LOC: HO.LAB 07:06
PROVIDERS: PCP Internal Medicine; Visit Provider Urology
DX: C61 Malignant neoplasm of prostate (principal); Z12.5 Encounter for screening for malignant neoplasm of prostate
CPT/HCPCS: 36415; 84153; 84154

== ENCOUNTER 2025-07-07 09:05 | Outpatient (AMB) | payer MEDICARE, SELFPAY ==
--- NOTE | 2025-07-07 09:05 | MHC.OFFVIS ---
Intake Visit Reasons: 4m/PSA/ SET ( NO UA ) Intake Note: Patient is present for 4M Telehealth Urology Medication:FINASTERIDE, VIT-C Antibiotic Allergy:NONE Blood Thinner:NONE LABS DONE : 06/29/25 Total PSA 4.99, 02/26/2025 TOTAL PSA : 11.21 Communicable Disease Specialist Required: No Accompanied by: Self / Same As Patient Allergies vaccine adjuvant system, AS01B lipo (From Shingrix (PF)) Adverse Reaction (Intermediate, Verified 07/07/25 09:06) joint pains; muscle weakness varicella-zoster virus glycoprotein (From Shingrix (PF)) Adverse Reaction (Intermediate, Verified 07/07/25 09:06) joint pains; muscle weakness HPI Comments Details: Tesfaye is a pleasant male. He is seen for the following urologic conditions - elevated PSA - erectile dysfunction Telemedicine Evaluation 15 min Consultation Plaid Jeanine Video PSA jump Had been alternating each month with finasteride PSA 10/21 5.7 on finasteride, 02/20 PSA , 07/23 5.0 Daily finasteride Four month follow-up PSA tele Prostate cancer - April 2024 grade group 3, ultra low volume Initial PSA 5.3 Volume 40 cc PT1c 05/22 Cameron score: 4+3=7 - Grade group: 3 Number cores positive: 1 Total number of cores: 12 - LBL 50% % of tissue involved: 5% of all tissue examined Periprostatic fat inv.: Not identified Seminal vesicle inv.: Not identified Perineural inv.: Present LVI: Not identified Staging MRI 06/22 volume 30 g, 8 mm PI-RADS 4 left posterolateral peripheral zone with abutment Prolaris - borderline surveillance vs intervention CCS - low 3.2 Ten year mortality risk 4.1 %, threshold is 3.2% Elevated PSA Marginal PSA for age PSA 05/19 4.9, 08/21 6.3 19%, 02/18 3.5 +F, 08/22 4.3, 03/22 5.3 11% Minimal lower urinary tract symptoms KARELY 2+ on exam No nodules Erectile dysfunction Responsive to sildenafil PFSH Medical History Pure hypercholesterolemia Sessile colonic polyp Elevated prostate specific antigen [PSA] Elevated blood pressure reading Arthritis, multiple joint involvement Surgical History Hx of bilateral cataract extraction History of right inguinal hernia repair (~01/27/22) Hx of colonoscopy History of appendectomy Family History Mother Cancer Father Heart attack Social History Housing: House Are you a primary career technical counselor to a significant other at home: No Do you presently have visiting nurse or other home services: No Alcohol intake: current Alcohol intake frequency: a few times a month Patient Tobacco Use Status: Never used Tobacco e-Cigarette/Vaping Use: Never Used Second Hand Smoke Exposure: Yes service: No Current occupational status: employed and unemployed Cognitive needs: No Hearing needs: No Vision needs: Yes Review of Systems Const All systems reviewed & are unremarkable except as noted in HPI and below Reports no additional complaints Card Reports no additional complaints and Denies syncope Resp Reports no additional complaints GI Reports no additional complaints Reports as per HPI and Denies change in libido Musc Reports no additional complaints Neuro Denies syncope Psych Denies change in libido Endo Denies change in libido Physical Exam Telemedicine evaluation Appropriate responses Regular breathing rate and rhythm Const General: cooperative, healthy appearing, comfortable and no acute distress Orientation/consciousness: patient oriented x3 HEENT Head: Yes normal to inspection Ears: hearing grossly normal bilaterally Face and sinus: Yes normal facial exam Mouth: moist mucous membranes Eyes General: appearance normal, both eyes and all related structures Neck Neck: Yes normal visual inspection Chest Chest palpation & inspection: normal inspection of the chest Resp Effort & Inspection: normal respiratory effort and able to speak in complete sentences GI Inspection: Yes normal to inspection Back/Spine/Pelvis Cervical Spine: normal cervical lordosis Thoracic/Lumbar Spine: thoracic and lumbar spine normal to inspection Skin General skin exam: no rashes or lesions noted Neuro General: patient oriented x3, gait normal, tone normal and moves all extremities Extrem General: Yes normal to inspection and Yes capillary refill normal Telehealth Telehealth Telehealth Platform: D[employer]im[employer] Location of provider rendering services: practice address Location of patient: address on file Patient Identification confirmed using: Name, : Yes Telehealth method: voice only Patient verbally consented to treatment: Yes Patient verbally consented to billing insurance company: Yes Patient informed of any privacy concerns related to visit: Yes Assessment & Plan Assessment & Plan (1) Prostate cancer: Comment: Low volume grade group 3 Code(s): C61 - Malignant neoplasm of prostate Category: Medical (2) Bladder outlet obstruction: Code(s): N32.0 - Bladder-neck obstruction Category: Medical Plan Six-month follow-up check PSA Orders: Orders PSA,Total (Free>4and<10) 6 Months C61 - Malignant neoplasm of prostate Medications: Refilled finasteride 5 mg PO DAILY 90 tabs 1RF 90 days R97.20 - Elevated prostate specific antigen [PSA] Patient Instructions: This note is constructed using voice recognition software. While every effort has been made to ensure accuracy shipyard painting supervisor errors may have been included. Imaging studies, laboratory and physical exam results were discussed and reviewed in detail. No major barriers to patient understanding were identified. An opportunity to ask questions regarding the treatment plan was provided. All questions were answered. The patient expressed understanding and agreement with the above treatment plan. The patient is aware they should contact our office by phone for worsening of their current condition or the appearance of new urologic symptoms. Compliance is encouraged with any medications and followup testing that is ordered. It is a privilege to participate in the urologic care of your patient. If you have any questions or concerns regarding treatment for the above conditions, or other urologic issues, please do not hesitate to contact me. The office telephone contact is [phone]. Sincerely, Dr Orestes Jensen MD, BRET [facility] - Urology Compassionate Specialist Care for the Genitourinary System Coding Level of Care Code Tele Est Pt Level 3 (18850) Complex visit Add On G2211 Diagnoses Prostate cancer C61 Bladder outlet obstruction N32.0
== END 2025-07-07 10:10 | disposition home or self-care (01) ==
LOC: HO.HUSH 09:05
PROVIDERS: PCP Internal Medicine; Visit Provider Urology
DX: C61 Malignant neoplasm of prostate (principal); N32.0 Bladder-neck obstruction
CPT/HCPCS: 99213; G2211